=== PATIENT | female | born 1930 | race Caucasian/White ===

== ENCOUNTER → 2016-05-19 | Outpatient (CLI) | payer OTHER, MEDICARE ==
[~2016-05-19] MED LIST: ACET-1175 PO; ACET-1256 PO; ALBINS/ INH; ALBU0.08 INH; ALBU18002 INH; ALBU1AER9 INH; ASPEC81 PO; ASPI81TA21 PO; BISA10SU3 PR; CALC500C3 PEG; CALC500C3 PO; CARV12.52 PO; COEN1CAP10 PO; CPR500 PO; CRS20 PO; DEXT30TA7 PO; DIPH1TAB87 PO; DIPH50TA10 PO; EYE OPB; FEXO3TAB PO; FLUC200T4 PO; FURO-85 PO; GFNSR600 PO; GUAI100S16 PO; GUAI100S75 PO; HYDR2.5L TOP; LEVO150T9 PO; LOPE1TAB25 PO; LOSA50TA54 PO; LOSA50TA6 PO; LYR/50 PO; LYR50 PO; MOML PO; MONT1TAB3 PO; MULT-190 PO; NEOMOIN76 TOP; NITR0.4S UT; NTRGSL/4 UT; NYSP EXT; PANT40TA PO; POLY335019 PO; POLYSOL4 OP; POLYSOL4 OPB; POTA-74 PO; POTA10CA28 PO; POTA20TA16 PO; PRED10TA PO; PROAIR INJ; ROPI1TAB PO; ROSU40TA PO; SENN8.6T9 PO; SERT-234 PO; SODIENE PR; SPRIN/30 INH; SYMIN INH; SYMIN160 INH; TAFLUPROST OPB; TIOTCAP INH; TRAM-10 PO; TRAM-453 PO; TRAZ100T29 PO; ZIOPTAN 0.0015% OPB
--- NOTE | 2016-05-19 12:03 | DIAGNOSTIC IMAGING REPORT ---
CT SCAN OF THE CHEST WITHOUT IV CONTRAST CLINICAL HISTORY: Asthma. Chronic cough. COMPARISON STUDY: Chest CT dated 12/03/2015. TECHNIQUE: CT scan of the thorax was performed from the thoracic inlet to the upper abdomen. Images are reviewed in the axial, sagittal, and coronal planes. IV contrast was not administered for this examination as per the referring clinician. CT DOSE: 793.66 mGy.cm FINDINGS: Thyroid: Atrophic. Thoracic aorta: There is atherosclerotic calcification of the thoracic aorta, which is normal in caliber and demonstrates standard 3-vessel arch anatomy. Heart: A 2-lead cardiac pacemaker is present in the left chest wall. Leads terminate in the right atrial appendage and the right ventricle. The heart is enlarged and without pericardial effusion. The coronary arteries are densely calcified. The pulmonary trunk is normal in caliber. Lungs and pleural spaces: There are moderate emphysematous changes. No airspace consolidation or pleural effusion is identified. Linear atelectasis versus scarring is present at both lung bases, with additional foci of subpleural scarring seen in the right lower lobe. There are several foci of tree-in-bud nodularity identified in the right upper and right lower lobes, as well as in the left upper lobe. Trachea and central airways are clear. Mediastinum: There is no mediastinal lymphadenopathy. Barbara: Not well assessed without IV contrast. Axillae: There is no axillary lymphadenopathy. Upper abdomen: There is a small hiatal hernia. Cholecystectomy clips are noted. Scattered hepatic cysts measure up to 2.2 cm. There is glandular atrophy of the partially imaged pancreas. A calcified granuloma is noted in the right hepatic lobe. Scattered colonic diverticula are observed. Skeletal structures: The skeletal structures are osteopenic. Degenerative change and scoliosis are noted in the thoracic spine. Fusion hardware is partially imaged in the lumbar spine. Advanced arthritic change is present in the shoulders. No lytic or blastic bony lesions are seen. Soft tissues: A 10 mm sebaceous cyst is seen in the right lower back on image #[id number]. IMPRESSION: 1. Emphysema. 2. Cardiomegaly and cardiac pacemaker. There is no radiographic evidence of congestive failure. 3. There is no airspace consolidation or pleural effusion. Tree-in-bud airspace opacities seen on 12/03/2015 have resolved and were likely on an infectious/inflammatory basis. 4. Additional changes as above. Electronically signed by: Kalin Castillo M.D. 05/19/2016 12:01 PM Dictated Date/Time: 05/19/2016 11:56 AM
== END | disposition home or self-care (01) ==
LOC: C.CTS 11:18
PROVIDERS: ATTEND Internal Medicine Pulmonary Disease
DX: J45.909 Unspecified asthma, uncomplicated (principal); J43.9 Emphysema, unspecified; I51.7 Cardiomegaly; Z95.0 Presence of cardiac pacemaker

== ENCOUNTER → 2016-06-01 | Outpatient (CLI) | payer OTHER, MEDICARE ==
--- NOTE | 2016-06-02 12:32 | CODING QUERY NO DIAGNOSIS ---
TREATMENT RENDERED WITHOUT A DIAGNOSIS To promote full compliance with coding requirements relating to patient care, physician participation is requested in all cases of direct mail manager uncertainty. Please assist us with providing a diagnosis/symptom for the test(s) below: A diagnosis/symptom was not documented on your Order. A valid diagnosis/symptom is required to bill all insurances. Please remember that we are unable to code a diagnosis of rule out, probable, possible, questionable, or suspected. Tests that require a diagnosis: DOS: 06/01/16 * PRO BNP DIAGNOSIS: Provider Signature: Date: Thank you Samantha [facility] Information Management Once completed, please kindly fax back to [phone] For questions please call [phone]
== END | disposition home or self-care (01) ==
LOC: C.LABFOXDH 07:45
PROVIDERS: ATTEND Internal Medicine
DX: R06.02 Shortness of breath (principal)

== ENCOUNTER → 2016-06-05 | Outpatient (CLI) | payer OTHER, MEDICARE ==
[2016-06-05 10:18] LABS: BLOOD UREA NITROGEN 48 mg/dl (7-18); CALCIUM 8.3 mg/dl (8.5-10.1); CARBON DIOXIDE 31 mmol/L (21-32); CHLORIDE 108 mmol/L (98-107); GLUCOSE 118 mg/dl (70-99); POTASSIUM 3.8 mmol/L (3.5-5.1); SODIUM 146 mmol/L (136-145)
== END | disposition home or self-care (01) ==
LOC: C.LABFOXDH 09:45
PROVIDERS: ATTEND Internal Medicine
DX: I50.9 Heart failure, unspecified (principal)

== ENCOUNTER → 2016-06-08 | Outpatient (CLI) | payer OTHER, MEDICARE ==
[2016-06-08 08:55] LABS: BLOOD UREA NITROGEN 46 mg/dl (7-18); BUN/CREATININE RATIO 27.1 (10-20); CARBON DIOXIDE 32 mmol/L (21-32); CHLORIDE 105 mmol/L (98-107); GLUCOSE 94 mg/dl (70-99); POTASSIUM 3.9 mmol/L (3.5-5.1); SODIUM 145 mmol/L (136-145)
== END | disposition home or self-care (01) ==
LOC: C.LABFOXDH 08:23
PROVIDERS: ATTEND Internal Medicine
DX: N18.3 Chronic kidney disease, stage 3 (moderate) (principal)

== ENCOUNTER → 2016-07-11 | Outpatient (CLI) | payer OTHER, MEDICARE ==
--- NOTE | 2016-07-11 11:18 | DIAGNOSTIC IMAGING REPORT ---
TWO VIEW CHEST CLINICAL HISTORY: Dyspnea. FINDINGS: PA and lateral chest radiographs are compared to study dated 02/10/2016 and correlated with chest CT dated 05/19/2016. The PA view is significantly degraded by patient rotation. A 2-lead cardiac pacemaker is unchanged in position and partially obscures the left mid chest. The heart is enlarged and there is atherosclerotic calcification of the thoracic aorta. The pulmonary vasculature is noncongested. Emphysema and chronic interstitial thickening is similar to previous. There are small pleural effusions and bibasilar atelectasis. There is no airspace consolidation typical for pneumonia. No pneumothorax is seen. The skeletal structures are osteopenic. The bony thorax is grossly intact. Degenerative changes are noted in the shoulders. Fusion hardware is seen in the upper lumbar spine. IMPRESSION: 1. Cardiomegaly and cardiac pacemaker. There is no radiographic evidence of congestive failure. 2. Emphysema. 3. Trace pleural effusions and bibasilar atelectasis Electronically signed by: Kalin Castillo M.D. 07/11/2016 11:17 AM Dictated Date/Time: 07/11/2016 11:15 AM
== END | disposition home or self-care (01) ==
LOC: C.RADBBURG 11:03
PROVIDERS: ATTEND Physician Assistant
DX: R06.02 Shortness of breath (principal); I51.7 Cardiomegaly; Z95.0 Presence of cardiac pacemaker; J43.9 Emphysema, unspecified

== ENCOUNTER → 2016-07-28 | Day surgery (SDC) | payer OTHER, MEDICARE ==
[2016-07-26 07:42] VITALS: BMI 38.0
[~2016-07-28] VITALS: Ht 172.7 cm; Wt 115.0 kg
[~2016-07-28] MED LIST changes: -ACET-1256 PO; +ALBUT/IPRATROP 3MG/0.5MG NEB 3 ML VIAL INH ONE; -EYE OPB; -GFNSR600 PO; +LIDOCAINE HCL 2% 2 ML VIAL (20MG/ML) ONE; -NITR0.4S UT; +PROPOFOL IV EMULSION 10 MG/ML 20 ML VIAL IV ONE; -SYMIN INH; -TIOTCAP INH; -TRAM-453 PO; -ZIOPTAN 0.0015% OPB
[2016-07-28 11:05] VITALS: Ht 172.7 cm; Wt 115.0 kg
[2016-07-28 11:08] VITALS: PULSE 64; O2SAT 95
--- NOTE | 2016-07-28 11:18 | Endo History and Physical ---
History & Physical Date of Service: Jul 28, 2016. Chief Complaint: Dysphagia Referring Physician: Dr. Hi History of Present Illness 86 yo CF who presents for EGD secondary to dysphagia. Past Medical History Arthritis, Pacemaker, Asthma, Gastrointestinal Disorder, Glaucoma, Reflux, Hypertension, COPD, Thyroid Disease, Depression, [place] Past Surgical History Hx Cardiac Surgery: Yes (PACEMAKER INSERTION) Hx Internal Defibrillator: No Hx Pacemaker: Yes (MEDTRONIC) Hx Abdominal Surgery: Yes (CHOLECYSTECTOMY) Hx Post-Op Nausea and Vomiting: No Hx Cancer Surgery: No Hx Thoracic Surgery: Yes (LUMBAR DECOMPRESSION FUSION, D/F REVISION) Hx Orthopedic: Yes (RT/LEFT TKA, RT/LEFT NELL, RT SHOULDER ARTHROSPLASTY) Hx Urinary Tract Surgery: No Family History Colon CA Social History Smoking Status: Never Smoker Hx Substance Use: No Hx Alcohol Use: No Allergies Coded Allergies: Morphine (Verified Adverse Reaction, Intermediate, SEVERE GI, 07/28/16) Current Medications Reported Home Medications Medications Dose Route/Sig Max Daily Dose Days Date Category Dose Instructions Tums (Calcium Carbonate) 500 Mg Chew 1 Tab PO Q4H PRN 07/26/16 Reported Trazodone (Trazodone HCl) 100 Mg Tab 100 Mg PO HS 07/26/16 Reported Ultram (Tramadol HCl) 50 Mg Tab 25 Mg PO Q8H PRN 07/26/16 Reported Systane (Polyethylene Glycol-Propylene) 1 Florence Florence 1 Drops OP BID 07/26/16 Reported Symbicort 160/4.5 Inhaler (Budesonide/Formoterol Fumarate) Aero 2 Puffs INH BID 07/26/16 Reported Spiriva Handihaler (Tiotropium [place]) 30 Puff/540 Mcg Aerp 1 Cap INH DAILY 07/26/16 Reported Guaifenesin 100 Mg/5 Ml Syp 10 Ml PO Q6H PRN 07/26/16 Reported Requip (Ropinirole HCl) 1 Mg Tab 1 Mg PO HS 07/26/16 Reported Diphenhydramine Hcl (Diphenhydramine Hcl (Sleep)) 50 Mg Tab 0.5 Tab PO HS PRN 30 07/26/16 Reported Ocuvite Preservision (Multivitamins/Minerals) 1 Tab Tab 2 Tab PO BID 07/26/16 Reported Miralax (Polyethylene Glycol 3350) 1 Pow Pow 17 Gm PO DAILY PRN 07/26/16 Reported Protonix (Pantoprazole Sodium) 40 Mg Tab 40 Mg PO QAM 07/26/16 Reported Bio-Statin (Nystatin) 56.7 Gm Powd 1 Dose EXT DIRECTED PRN 07/26/16 Reported Nitrostat (Nitroglycerin) 0.4 Mg Tab 0.4 Mg UT PRN 07/26/16 Reported Mucinex Dm (Dextromethorphan-Guaifenesin) 1 Tab Tab 1 Tab PO Q12 PRN 14 07/26/16 Reported Milk Of Magnesia (Magnesium Hydroxide) 30 Ml Susp 30 Ml PO Q2D PRN 07/26/16 Reported Lyrica (Pregabalin) 50 Mg Cap 50 Mg PO BID 07/26/16 Reported Loperamide Hcl 2 Mg Tab 1 Tab PO DIRECTED PRN 07/26/16 Reported Fleet Enema (Sodium Phosphate/Biphosphate) Catherine 1 Ea [place] DAILY PRN 07/26/16 Reported Dulcolax (Bisacodyl) 10 Mg Sup 1 Supp NC DAILY PRN 07/26/16 Reported Singulair (Montelukast Sodium) 10 Mg Tab 10 Mg PO DAILY 02/10/16 Reported Cozaar (Losartan Potassium) 50 Mg Tab 50 Mg PO DAILY 02/10/16 Reported Proventil 0.083% 2.5MG/3ML (Albuterol Sulfate) Nebu 2.5 Mg INH Q4 PRN 04/01/15 Reported Proair Hfa (Albuterol) Aers 2 Puffs INH QID PRN 04/01/15 Reported Co Q10 (Coenzyme Q10 (Ubidecarenone)) 200 Mg Cap 200 Mg PO QAM 04/01/15 Reported Micro-K Ext Rel (Potassium Chloride) 10 Meq Capcr 10 Meq PO QAM 04/01/15 Reported Levothyroxine Sodium 150 Mcg Tab 1 Tab PO QAM 90 04/01/15 Reported Zoloft (Sertraline HCl) 100 Mg Tab 2 Tabs PO HS 04/01/15 Reported Tylenol (Acetaminophen) 325 Mg Tab 650 Mg PO Q4 PRN 10/22/13 Reported MAX APAP = 3GM/24HRS Senexon (Sennosides) 8.6 Mg Tab 1 Tab PO BID 10/22/13 Reported Coreg (Carvedilol) 12.5 Mg Tab 12.5 Mg PO BID 1/10/14 Reported Crestor * (Rosuvastatin Calcium) 40 Mg Tab 40 Mg PO HS 12/26/10 Reported Ecotrin Or Generic * (Aspirin) 81 Mg Ectab 81 Mg PO QAM 08/03/08 Reported Vital Signs Weight (Kilograms): 115.00 Height (Feet): 5 Height (Inches): 8 Date Time Temp Pulse Resp B/P (MAP) Pulse Ox O2 Delivery O2 Flow Rate FiO2 07/28/16 11:06 36.5 84 20 172/85 (114) 90 Room Air Physical Exam General Appearance: WD/WN, no apparent distress Respiratory/Chest: Auscultation: breath sounds normal Cardiovascular: Heart Auscultation: RRR Abdomen: Bowel Sounds: normal Inspection & Palpation: soft, non-distended, no tenderness, guarding & rebound Assessment and Plan Assessment: 86 yo CF who presents for EGD secondary to dysphagia. Plan: Proceed with EGD.
--- NOTE | 2016-07-28 12:19 | GI REPORT ---
Procedure Date: 07/28/2016 11:54 AM Procedure: Upper GI endoscopy Indications: Dysphagia Medicines: Monitored Anesthesia Care Complications: No immediate complications. Estimated Blood Loss: Estimated blood loss: none. Procedure: Pre-Anesthesia Assessment: - Prior to the procedure, a History and Physical was performed, and patient medications and allergies were reviewed. The patient's tolerance of previous anesthesia was also reviewed. The risks and benefits of the procedure and the sedation options and risks were discussed with the patient. All questions were answered, and informed consent was obtained. Prior Anticoagulants: The patient has taken aspirin, last dose was day of procedure. ASA Grade Assessment: III - A patient with severe systemic disease. After reviewing the risks and benefits, the patient was deemed in satisfactory condition to undergo the procedure. After obtaining informed consent, the endoscope was passed under direct vision. Throughout the procedure, the patient's blood pressure, pulse, and oxygen saturations were monitored continuously. The scope was introduced through the mouth, and advanced to the second part of duodenum. The upper GI endoscopy was accomplished without difficulty. The patient tolerated the procedure well. Findings: Multiple 2 mm plaques were found in the upper third of the esophagus. Cells for cytology were obtained by brushing. Localized mild inflammation characterized by erosions was found in the gastric antrum. Biopsies were taken with a cold forceps for histology. The examined duodenum was normal. Impression: - Multiple plaques in the upper third of the esophagus. Cells for cytology obtained. - Gastritis. Biopsied. - Normal examined duodenum. Recommendation: - Resume previous diet. - Continue present medications. - Await pathology results. - Return to primary care physician as previously scheduled. Chicho Hutchinson, DO 07/28/2016 12:18:49 PM This report has been signed electronically. Note Initiated On: 07/28/2016 11:54 AM I attest to the content of the Intraoperative Record and orders documented therein, exceptions below
--- NOTE | 2016-07-28 12:21 | Discharge Instructions ---
Endoscopy Patient Instructions Date / Procedure(s) Performed Jul 28, 2016. EGD Allergy Information Coded Allergies: Morphine (Verified Adverse Reaction, Intermediate, SEVERE GI, 07/28/16) Discharge Date / Findings Jul 28, 2016. Possible Deja esophagitis s/p brushings Gastritis s/p biopsies Medication Instructions Stopped Medication(s): nothing taken OK to resume all medications today as prescribed Medications Dose Route/Sig Max Daily Dose Days Date Category Dose Instructions Tums (Calcium Carbonate) 500 Mg Chew 1 Tab PO Q4H PRN 07/26/16 Reported Trazodone (Trazodone HCl) 100 Mg Tab 100 Mg PO HS 07/26/16 Reported Ultram (Tramadol HCl) 50 Mg Tab 25 Mg PO Q8H PRN 07/26/16 Reported Systane (Polyethylene Glycol-Propylene) 1 Florence [place] 1 Drops OP BID 07/26/16 Reported Symbicort 160/4.5 Inhaler (Budesonide/Formoterol Fumarate) Aero 2 Puffs INH BID 07/26/16 Reported Spiriva Handihaler (Tiotropium [place]) 30 Puff/540 Mcg Aerp 1 Cap INH DAILY 07/26/16 Reported Guaifenesin 100 Mg/5 Ml Syp 10 Ml PO Q6H PRN 07/26/16 Reported Requip (Ropinirole HCl) 1 Mg Tab 1 Mg PO HS 07/26/16 Reported Diphenhydramine Hcl (Diphenhydramine Hcl (Sleep)) 50 Mg Tab 0.5 Tab PO HS PRN 30 07/26/16 Reported Ocuvite Preservision (Multivitamins/Minerals) 1 Tab Tab 2 Tab PO BID 07/26/16 Reported Miralax (Polyethylene Glycol 3350) 1 Pow Pow 17 Gm PO DAILY PRN 07/26/16 Reported Protonix (Pantoprazole Sodium) 40 Mg Tab 40 Mg PO QAM 07/26/16 Reported Bio-Statin (Nystatin) 56.7 Gm Powd 1 Dose EXT DIRECTED PRN 07/26/16 Reported Nitrostat (Nitroglycerin) 0.4 Mg Tab 0.4 Mg UT PRN 07/26/16 Reported Mucinex Dm (Dextromethorphan-Guaifenesin) 1 Tab Tab 1 Tab PO Q12 PRN 14 07/26/16 Reported Milk Of Magnesia (Magnesium Hydroxide) 30 Ml Susp 30 Ml PO Q2D PRN 07/26/16 Reported Lyrica (Pregabalin) 50 Mg Cap 50 Mg PO BID 07/26/16 Reported Loperamide Hcl 2 Mg Tab 1 Tab PO DIRECTED PRN 07/26/16 Reported Fleet Enema (Sodium Phosphate/Biphosphate) Catherine 1 Ea [place] DAILY PRN 07/26/16 Reported Dulcolax (Bisacodyl) 10 Mg Sup 1 Supp [place] DAILY PRN 07/26/16 Reported Singulair (Montelukast Sodium) 10 Mg Tab 10 Mg PO DAILY 02/10/16 Reported Cozaar (Losartan Potassium) 50 Mg Tab 50 Mg PO DAILY 02/10/16 Reported Proventil 0.083% 2.5MG/3ML (Albuterol Sulfate) Nebu 2.5 Mg INH Q4 PRN 04/01/15 Reported Proair Hfa (Albuterol) Aers 2 Puffs INH QID PRN 04/01/15 Reported Co Q10 (Coenzyme Q10 (Ubidecarenone)) 200 Mg Cap 200 Mg PO QAM 04/01/15 Reported Micro-K Ext Rel (Potassium Chloride) 10 Meq Capcr 10 Meq PO QAM 04/01/15 Reported Levothyroxine Sodium 150 Mcg Tab 1 Tab PO QAM 90 04/01/15 Reported Zoloft (Sertraline HCl) 100 Mg Tab 2 Tabs PO HS 04/01/15 Reported Tylenol (Acetaminophen) 325 Mg Tab 650 Mg PO Q4 PRN 10/22/13 Reported MAX APAP = 3GM/24HRS Senexon (Sennosides) 8.6 Mg Tab 1 Tab PO BID 10/22/13 Reported Coreg (Carvedilol) 12.5 Mg Tab 12.5 Mg PO BID 02/28/13 Reported Crestor * (Rosuvastatin Calcium) 40 Mg Tab 40 Mg PO HS 12/26/10 Reported Ecotrin Or Generic * (Aspirin) 81 Mg Ectab 81 Mg PO QAM 08/03/08 Reported Provider Instructions Activity Restrictions - No exercising or heavy lifting for 24 hours. - Do not drink alcohol the day of the procedure. - Do not drive a car or operate machinery until the day after the procedure. - Do not make any important decisions or sign important papers in 24 hours after the procedure. Following Day: - Return to full activity which may include returning to work/school. Diet Start your diet with liquids and light foods (jello, soup, juice, toast). Then eat your usual diet if not nauseated. Treatment For Common After Affects For mild abdominal pain, bloating, or excessive gas: - Rest - Eat lightly - Lie on right side Follow-Up Information Follow-up with Dr. Hi as scheduled Anesthesia Information What You Should Know You have had a procedure that required some medicine to reduce anxiety and discomfort. This treatment is called moderate sedation. After receiving the treatment, you may be sleepy, but you will be able to breathe on your own. The effects of the treatment may last for several hours. Follow these instructions along with Activity/Diet recommendations noted above: * Do NOT do anything where dizziness or clumsiness would be dangerous. * Rest quietly at home today, then you can be up and about tomorrow. * Have a responsible person stay with you the rest of today. * You may have had an I.V. today. If so, you may take the dressing off later today. Recommendations Call your doctor if: * Trouble breathing * Continuous vomiting for more than 24 hours * Temperature above 101 degrees * Severe abdominal pain or bloating * Pain not relieved by pain medicine ordered * There is increased drainage or redness from any incision * A large amount of rectal bleeding greater than 2-3 tablespoons. (If you had a polyp/s removed or have hemorrhoids, a small amount of blood - from the rectum is to be expected.) * You have any unanswered questions or concerns. IN THE EVENT OF A SERIOUS EMERGENCY, GO TO THE NEAREST EMERGENCY ROOM Your discharge instructions were prepared by provider Chicho Hutchinson. Patient Instructions Signature Page Christina Hoy Patient (or Guardian) Signature/Date: I have read and understand the instructions given to me by my caregivers. Caregiver/RN/Doctor Signature/Date: The above-named patient and/or guardian has received patient instructions on this date. + Original Patient Signature Page (only) stays with chart. Please make copy for patient.
[2016-07-28 12:45] VITALS: BP 146/65; PULSE 62; O2SAT 92
--- NOTE | 2016-07-28 13:35 | Anesthesiology Progress Note ---
Anesthesia Post Op Note Date & Time Jul 28, 2016 at 13:35 Vital Signs Pain Intensity: 0 Vital Signs Past 12 Hours Date Time Temp Pulse Resp B/P (MAP) Pulse Ox O2 Delivery O2 Flow Rate FiO2 07/28/16 12:45 62 20 146/65 (92) 92 Room Air 07/28/16 12:35 62 20 105/76 (86) 93 Room Air 07/28/16 12:19 75 20 140/80 (100) 95 Room Air 07/28/16 11:08 64 16 95 Room Air 07/28/16 11:06 36.5 84 20 172/85 (114) 90 Room Air Notes Mental Status: alert / awake / arousable, participated in evaluation Pt Amnestic to Procedure: Yes Nausea / Vomiting: adequately controlled Pain: adequately controlled Airway Patency, RR, SpO2: stable & adequate BP & HR: stable & adequate Hydration State: stable & adequate Anesthetic Complications: no major complications apparent
== END | disposition home or self-care (01) ==
LOC: C.GI 10:44
PROVIDERS: ATTEND Internal Medicine
DX: R13.10 Dysphagia, unspecified (principal); J45.909 Unspecified asthma, uncomplicated; K29.50 Unspecified chronic gastritis without bleeding; K21.9 Gastro-esophageal reflux disease without esophagitis; F32.9 Major depressive disorder, single episode, unspecified; Z80.0 Family history of malignant neoplasm of digestive organs; Z95.0 Presence of cardiac pacemaker

== ENCOUNTER 2016-08-18 15:21 | Inpatient (IN) | payer OTHER, MEDICARE ==
[~2016-08-18] VITALS: Ht 172.7 cm; Wt 111.4 kg
[~2016-08-18 15:21] MED LIST changes: -ALBINS/ INH; -ALBU18002 INH; -ALBUT/IPRATROP 3MG/0.5MG NEB 3 ML VIAL INH ONE; -ASPI81TA21 PO; -CALC500C3 PEG; -CPR500 PO; -DIPH1TAB87 PO; -FEXO3TAB PO; -FLUC200T4 PO; -FURO-85 PO; -GUAI100S75 PO; -HYDR2.5L TOP; -LIDOCAINE HCL 2% 2 ML VIAL (20MG/ML) ONE; -LOSA50TA54 PO; -LYR/50 PO; -NEOMOIN76 TOP; -POLYSOL4 OPB; -POTA-74 PO; -POTA20TA16 PO; -PRED10TA PO; -PROAIR INJ; -PROPOFOL IV EMULSION 10 MG/ML 20 ML VIAL IV ONE; -ROSU40TA PO; -TAFLUPROST OPB
[2016-08-18] MEDS ORDERED: ALBUTEROL 0.083% NEBU SOLN 3 ML VIAL INH STA (15:32)
--- NOTE | 2016-08-18 15:52 | DIAGNOSTIC IMAGING REPORT ---
CHEST ONE VIEW PORTABLE CLINICAL HISTORY: Respiratory distress. Dyspnea. COMPARISON STUDY: Chest CT May 19, 2016 and chest radiograph July 11, 2016. FINDINGS: A dual lead left subclavian pacemaker is in place. Cardiomediastinal silhouette is stable. There is emphysema. No pneumothorax or pleural effusion is present. Mild bibasilar opacities are unchanged. IMPRESSION: No acute cardiopulmonary findings. No change in appearance of the chest. Electronically signed by: Nicolás Miller M.D. 08/18/2016 3:50 PM Dictated Date/Time: 08/18/2016 3:48 PM
[2016-08-18 15:56] LABS: BASO % 0.3 %; BASO ABS # 0.04 K/uL (0-0.2); COMPLETE YES; EOS % 1.2 %; HEMATOCRIT 39.8 % (37-47); IG% 0.3 %; LYMPH % 11.6 %; LYMPH ABS # 1.78 K/uL (1.2-3.4); MEAN CELL VOLUME 95.7 fL (80-100); MEAN CORPUSCULAR HEMOGLOBIN 29.1 pg (25-34); MEAN CORPUSCULAR HGB CONC 30.4 g/dl (32-36); MEAN PLATELET VOLUME 10.1 fL (7.4-10.4); MONO % 7.3 %; NEUT % 79.3 %; PLATELET COUNT 247 K/uL (130-400); RED BLOOD COUNT 4.16 M/uL (4.2-5.4); WHITE BLOOD COUNT 15.41 K/uL (4.8-10.8)
[2016-08-18 15:58] LABS: VEN BLD GAS O2 SATURATION 62.4 %; VEN BLOOD GAS BASE EXCESS 2.8 mmol/L
[2016-08-18] MEDS ORDERED: PIPERACILLIN/TAZOBACTAM 4.5 GM/100ML D5W IV STA (16:02)
[2016-08-18 16:05] LABS: PROTHROMBIN TIME (PATIENT) 10.5 SECONDS (9.0-12.0)
[2016-08-18 16:13] LABS: ALT/SGPT 18 U/L (12-78); AST/SGOT 17 U/L (15-37); BLOOD UREA NITROGEN 27 mg/dl (7-18); BUN/CREATININE RATIO 16.1 (10-20); CALCIUM 8.7 mg/dl (8.5-10.1); CARBON DIOXIDE 27 mmol/L (21-32); CHLORIDE 109 mmol/L (98-107); GLUCOSE 102 mg/dl (70-99); POTASSIUM 4.4 mmol/L (3.5-5.1); SODIUM 143 mmol/L (136-145)
[2016-08-18 16:17] LABS: ALB/GLOB RATIO 0.9 (0.9-2); ALKALINE PHOSPHATASE 111 U/L (45-117)
[2016-08-18] MEDS ORDERED: POLYSOL4 OPB (16:32)
[2016-08-18] MEDS ORDERED: MOML PO (16:32)
[2016-08-18] MEDS ORDERED: LYR/50 PO (16:32)
[2016-08-18] MEDS ORDERED: FURO-85 PO (16:32)
[2016-08-18] MEDS ORDERED: HYDR2.5L TOP (16:32)
[2016-08-18] MEDS ORDERED: CALC500C3 PEG (16:32)
[2016-08-18] MEDS ORDERED: SYMIN160 INH (16:32)
[2016-08-18] MEDS ORDERED: GUAI100S75 PO (16:32)
[2016-08-18] MEDS ORDERED: FLUC200T4 PO (16:32)
[2016-08-18] MEDS ORDERED: ALBU18002 INH (16:32)
[2016-08-18] MEDS ORDERED: PROAIR INJ (16:32)
[2016-08-18] MEDS ORDERED: DIPH1TAB PO (16:32)
[2016-08-18] MEDS ORDERED: ASPI81TA21 PO (16:32)
[2016-08-18] MEDS ORDERED: TAFLUPROST OPB (16:32)
[2016-08-18] MEDS ORDERED: POTA20TA16 PO (16:32)
[2016-08-18] MEDS ORDERED: ALBINS/ INH (16:32)
[2016-08-18] MEDS ORDERED: LOSA50TA54 PO (16:32)
[2016-08-18] MEDS ORDERED: NEOMOIN76 TOP (16:32)
[2016-08-18] MEDS ORDERED: ROSU40TA PO (16:32)
[2016-08-18] MEDS ORDERED: FEXO3TAB PO (16:32)
[2016-08-18] MEDS ORDERED: POTA-74 PO (16:36)
[2016-08-18] MEDS ORDERED: LEVAQUIN 500MG / 100ML D5W IV ONE (16:45)
--- NOTE | 2016-08-18 16:45 | DIAGNOSTIC IMAGING REPORT ---
RIGHT KNEE 3 VIEWS CLINICAL HISTORY: Fall. Right knee pain. FINDINGS: AP, crosstable lateral, and sunrise views of the right knee are obtained. Correlation is made with radiographs of the right femur dated 10/22/2013. The skeletal structures are osteopenic. No fracture is seen. A right knee arthroplasty is in near anatomic alignment. There has been undersurface remodeling of the patella. No periprosthetic lucency is seen. A joint effusion is noted. Soft tissue swelling is present around the knee. There is atherosclerotic calcification of the popliteal artery. IMPRESSION: 1. Soft tissue swelling and joint effusion. No fracture is seen. 2. A right knee arthroplasty is in near-anatomic alignment. Electronically signed by: Kalin Castillo M.D. 08/18/2016 4:44 PM Dictated Date/Time: 08/18/2016 4:42 PM
[2016-08-18 16:47] LABS: URINE APPEARANCE CLEAR (CLEAR); URINE BILIRUBIN NEG (NEG); URINE COLOR YELLOW; URINE EPITHELIAL CELL AUTO 20-30 /lpf (0-5); URINE NITRITE POS (NEG); UROBILINOGEN NEG (NEG)
[2016-08-18 16:49] LABS: MANUAL MICROSCOPIC REQUIRED? NO; REVIEW REQ? NO
[2016-08-18] MEDS ORDERED: POLYETHYLENE GLYCOL 8.5 GM PO PRN (18:00)
[2016-08-18] MEDS ORDERED: MAGNESIUM HYDROXIDE SUSP 30 ML UDC PO PRN ×2 (18:00→18:15)
[2016-08-18] MEDS ORDERED: BISACODYL 10 MG SUPP PR PRN (18:00)
[2016-08-18] MEDS ORDERED: CALCIUM CARBONATE 500 MG CHEWABLE PO PRN (18:00)
[2016-08-18] MEDS ORDERED: NITROGLYCERIN 0.4 MG SL PER TAB CHARGE UT SCH (18:00)
[2016-08-18] MEDS ORDERED: ACETAMINOPHEN 325 MG TAB PO PRN ×2 (18:00→18:15)
[2016-08-18] MEDS ORDERED: TRAMADOL HCL 50 MG TAB PO PRN (18:00)
[2016-08-18] MEDS ORDERED: ALBUTEROL 0.083% NEBU SOLN 3 ML VIAL INH PRN (18:00)
[2016-08-18] MEDS ORDERED: ONDANSETRON INJ 2 MG/ML 2 ML VIAL IV PRN (18:15)
[2016-08-18] MEDS ORDERED: ALBUT/IPRATROP 3MG/0.5MG NEB 3 ML VIAL INH PRN (18:15)
[2016-08-18] MEDS ORDERED: POLYETHYLENE (MIRALAX) 17 GM PACK PO PRN (18:15)
[2016-08-18] MEDS ORDERED: ALUMINUM/MAGNESIUM/SIMETH (MAALOX MAX) 30 ML UDC PO PRN (18:15)
--- NOTE | 2016-08-18 18:34 | History and Physical ---
History & Physical Date & Time of Service: Aug 18, 2016 at 18:23 Chief Complaint: Sob/Fall, Rt Knee Pain Primary Care Physician: Evangelista Ulloa History of Present Illness Source: patient, family This patient presents with increasing shortness of breath, one day prior to admission she aspirated one of her many oral medications. She states this caused coughing fit and she eventually produced the capsule, later that evening she coughed up a gelatinous orange material. She had a waxing and waning night as far shortness of breath coughing and sleep, she presented to the ER where she is found to be hypoxic on room air, has a prolonged expiratory phase of breathing, wheezing, and generally ill feeling. Her hypoxia corrects easily with oxygen in the ER Recently she had a fall and sustained a contusion to her right knee this was x- rayed without fracture there is a intact joint replacement Recently she has also had increasing swelling and weeping of fluid from her bilateral lower legs, she typically does take Lasix and has been compliant, however there are now some open areas to her distal right leg that are erythematous and concerning for infection. Past Medical/Surgical History Medical Problems: (1) Asthma Status: Chronic (2) Benign hypertension Status: Chronic (3) Bronchitis Status: Resolved (4) Cardiac pacemaker procedure Status: Resolved (5) COPD (chronic obstructive pulmonary disease) Status: Chronic (6) Depression Status: Chronic (7) GERD (gastroesophageal reflux disease) Status: Chronic (8) Hyperlipemia Status: Chronic (9) Pacemaker Status: Chronic Surgical Problems: (1) H/O spinal fusion Status: Resolved (2) S/P hip replacement Status: Resolved (3) S/P knee replacement Status: Resolved Family History FHx: cancer FHx: hypertension FHx: kidney disease/stones Social History Smoking Status: Former Smoker Drug Use: none Marital Status: Housing status: assisted living Occupational Status: retired Immunizations History of Influenza Vaccine: Yes Influenza Vaccine Date: Nov 20, 2012 History of Tetanus Vaccine?: Yes Tetanus Immunization Date: Nov 25, 1992 History of Pneumococcal: Yes Pneumococcal Date: Mar 30, 2008 History of Hepatitis B Vaccine: Unknown Multi-Drug Resistant Organisms History of MDRO: No Allergies Coded Allergies: Morphine (Verified Adverse Reaction, Intermediate, SEVERE GI, 07/28/16) Home Medications Scheduled Aspirin Enteric Coated (Ecotrin Or Generic), 81 MG PO DAILY Budesonide/Formoterol Fumarate (Symbicort 160/4.5 Inhaler ), 2 PUFFS INH BID Carvedilol (Coreg), 12.5 MG PO BID Coenzyme Q10 (Ubidecarenone) (Co Q10), 200 MG PO QAM Fexofenadine HCl (Mucinex Allergy), 1 TAB PO BID Fluconazole (Diflucan), 200 MG PO QPM Furosemide (Lasix), 20 MG PO QAM Hydrocortisone (Topical) (Hydrocortisone), 1 APPLN TOP BID Levothyroxine Sodium (Levothyroxine Sodium), 1 TAB PO QAM Losartan Potassium (Cozaar), 50 MG PO DAILY Magnesium Hydroxide (Milk Of Magnesia), 30 ML PO PRN UD Montelukast Sodium (Singulair), 10 MG PO DAILY Nitroglycerin (Nitrostat), 0.4 MG UT PRN Ocuvite Preservision (Ocuvite Preservision), 1 TAB PO BID Pantoprazole (Protonix), 40 MG PO QAM Polyethylene Glycol-Propylene (Systane), 1 DROPS OPB BID Potassium Chloride (Potassium Chloride Er), 1 TAB PO DAILY Pregabalin (Lyrica), 50 MG PO BID Ropinirole (Requip), 1 MG PO HS Rosuvastatin Calcium (Crestor), 40 MG PO ON HOLD Sennosides ([place]), 1 TAB PO BID Sertraline (Zoloft), 2 TABS PO HS Tiotropium Peerless (Spiriva Handihaler), 1 CAP INH DAILY Trazodone Hcl (Trazodone), 100 MG PO HS [Tafluprost], 1 DROP OPB QPM Scheduled PRN Acetaminophen (Tylenol), 650 MG PO Q4 PRN for Pain or Fever Albuterol Sulf (Proventil 0.083% 2.5MG/3ML), 2.5 MG INH Q4 PRN for COUGH/WHEEZE Bisacodyl (Dulcolax), 1 SUPP [place] Q48HR PRN for Constipation Calcium Carbonate (Tums), 1 TAB PO Q4H PRN for Indigestion Diphenhydramine Hcl (Benadryl Allergy), 12.5 MG PO HS PRN for Sleep Guaifenesin (Siltussin Sa), 10 ML PO Q6 PRN for Cough Loperamide Hcl (Loperamide Hcl), 1 TAB PO DIRECTED PRN for Diarrhea Neomycin-Bacitracin Zn-Polymyx (Triple Antibiotic), 1 APPLN TOP DAILY PRN for APPLY TO RIGHT LEG Nystatin (Bio-Statin), 1 DOSE EXT DIRECTED PRN for PRN Polyethylene Glycol 3350 (Miralax), 8.5 GM PO DAILY PRN for Constipation Sodium Phosphate/Biphosphate (Fleet Enema), 1 EA [place] UD PRN for Constipation Tramadol (Ultram), 25 MG PO Q8H PRN for Pain [Proair], 2 PUFF INJ Q6 PRN for SOB/Wheezing Review of Systems ROS: well nourished well developed No double vision blurry vision Some problems with speech or swallowing, due to dry mouth and recent thrush No palpitations, chest pain or pressure Wheezing and nonproductive cough dyspnea at rest No abdominal pain nausea vomiting diarrhea changes in appetite or weight No burning urine urine frequency or changes in color Right knee focal joint pain and muscle pain Worsening skin rashes lower extremity bilateral right greater than left No unusual bruising or bleeding No focused back pain or numbness or loss of strength No changes in memory or confusion Physical Exam Vital Signs Date Time Temp Pulse Resp B/P (MAP) Pulse Ox O2 Delivery O2 Flow Rate FiO2 08/18/16 17:57 66 22 157/90 92 Nasal Cannula 3.0 08/18/16 16:37 73 16 143/70 92 Nasal Cannula 3.0 08/18/16 15:38 37.8 80 22 127/75 87 Room Air 08/18/16 15:38 92 Nasal Cannula 2.0 08/18/16 15:38 92 Nasal Cannula 2.0 08/18/16 15:38 87 Room Air 08/18/16 15:34 81 General Appearance: + moderate distress, + obese Head: normocephalic, atraumatic Eyes: PERRL, EOMI ENT: hearing grossly normal, pharynx normal (I do not see any thrush currently) Neck: supple, no JVD, trachea midline Respiratory/Chest: + decreased breath sounds, + accessory muscle use, + wheezing Cardiovascular: regular rate, rhythm, + systolic murmur Abdomen/GI: normal bowel sounds, non tender, soft Back: no CVA tenderness, no muscle spasm Extremities/Musculoskelatal: + pedal edema, + swelling, + pertinent finding ( changes of chronic venous stasis) Neurologic/Psych: alert, oriented x 3 Skin: + rash, + pertinent finding (open areas to right leg approximately 2 cm lateral distal right) Diagnostics Laboratory Results Results Past 24 Hours Test 08/18/16 15:45 08/18/16 15:53 08/18/16 16:20 Range/Units White Blood Count 15.41 4.8-10.8 K/uL Red Blood Count 4.16 4.2-5.4 M/uL Hemoglobin 12.1 12.0-16.0 g/dL Hematocrit 39.8 37-47 % Mean Corpuscular Volume 95.7 80-100 fL Mean Corpuscular Hemoglobin 29.1 25-34 pg Mean Corpuscular Hemoglobin Concent 30.4 32-36 g/dl Platelet Count 247 130-400 K/uL Mean Platelet Volume 10.1 7.4-10.4 fL Neutrophils (%) (Auto) 79.3 % Lymphocytes (%) (Auto) 11.6 % Monocytes (%) (Auto) 7.3 % Eosinophils (%) (Auto) 1.2 % Basophils (%) (Auto) 0.3 % Neutrophils # (Auto) 12.25 1.4-6.5 K/uL Lymphocytes # (Auto) 1.78 1.2-3.4 K/uL Monocytes # (Auto) 1.12 0.11-0.59 K/uL Eosinophils # (Auto) 0.18 0-0.5 K/uL Basophils # (Auto) 0.04 0-0.2 K/uL RDW Standard Deviation 56.7 36.4-46.3 fL RDW Coefficient of Variation 16.3 11.5-14.5 % Immature Granulocyte % (Auto) 0.3 % Immature Granulocyte # (Auto) 0.04 0.00-0.02 K/uL Prothrombin Time 10.5 9.0-12.0 SECONDS Prothromb Time International Ratio 1.0 0.9-1.1 Activated Partial Thromboplast Time 26.1 21.0-31.0 SECONDS Partial Thromboplastin Ratio 1.0 Venous Blood pH 7.36 7.36-7.41 Venous Blood Partial Pressure CO2 53 38.0-50.0 mmHg Venous Blood Partial Pressure O2 31 mmHg Venous Blood HCO3 29 mmol/L Venous Blood Oxygen Saturation 62.4 % Venous Blood Base Excess 2.8 mmol/L Sodium Level 143 136-145 mmol/L Potassium Level 4.4 3.5-5.1 mmol/L Chloride Level 109 98-107 mmol/L Carbon Dioxide Level 27 21-32 mmol/L Anion Gap 7.0 3-11 mmol/L Blood Urea Nitrogen 27 7-18 mg/dl Creatinine 1.70 0.60-1.20 mg/dl Est Creatinine Clear Calc Drug Dose 29.9 ml/min Estimated GFR () 30.7 Estimated GFR (Non- 26.5 BUN/Creatinine Ratio 16.1 10-20 Random Glucose 102 70-99 mg/dl Calcium Level 8.7 8.5-10.1 mg/dl Total Bilirubin 0.3 0.2-1 mg/dl Aspartate Amino Transf (AST/SGOT) 17 15-37 U/L Alanine Aminotransferase (ALT/SGPT) 18 12-78 U/L Alkaline Phosphatase 111 45-117 U/L Troponin I < 0.015 0-0.045 ng/ml Pro-B-Type Natriuretic Peptide 1630 0-1800 pg/ml Total Protein 6.2 6.4-8.2 gm/dl Albumin 2.9 3.4-5.0 gm/dl Globulin 3.3 2.5-4.0 gm/dl Albumin/Globulin Ratio 0.9 0.9-2 Lactic Acid Level 1.5 0.4-2.0 mmol/L Urine Color YELLOW Urine Appearance CLEAR CLEAR Urine pH 5.0 4.5-7.5 Urine Specific [place] 1.020 1.000-1.030 Urine Protein NEG NEG Urine Glucose (UA) NEG NEG Urine Ketones NEG NEG Urine Occult Blood NEG NEG Urine Nitrite POS NEG Urine Bilirubin NEG NEG Urine Urobilinogen NEG NEG Urine Leukocyte Esterase SMALL NEG Urine WBC (Auto) 10-30 0-5 /hpf Urine RBC (Auto) 0-4 0-4 /hpf Urine Hyaline Casts (Auto) 1-5 0-5 /lpf Urine Epithelial Cells (Auto) 20-30 0-5 /lpf Urine Bacteria (Auto) 1+ NEG Microbiology Results 08/18/16 Blood Culture, Received Pending 08/18/16 Blood Culture, Received Pending other (no evidence of heart failure infiltrate or effusion) Impression Assessment and Plan 86-year-old female with acute hypoxic respiratory failure with a baseline history of chronic respiratory failure requiring nocturnal oxygen, likely exacerbated by aspiration of pill. Right lower extremity cellulitis on a background of chronic venous stasis For her COPD nebulized albuterol ipratropium and formoterol, intravenous steroids, supplemental oxygen. If she does not improve consideration for repeat x-ray or pulmonary consultation (Zosyn for cellulitis will also cover aspiration pneumonia) Lower extremity cellulitis, we will use Zosyn wound care consult Cor pulmonale and edema, we'll change her Lasix intravenous. Continue Coreg, Cozaar, last echo January/2016 showed preserved ejection fraction Clinically euthyroid continue Synthroid Dry mouth, continue Diflucan for thrush (holding Crestor) use Peridex DVT prevention is heparin Resuscitation Status FULL RESUSCITATION VTE Prophylaxis VTE Risk Assessment Done? Y/N: Yes Risk Level: Moderate Given or contraindicated: Unfractionated heparin SQ
[2016-08-18] MEDS ORDERED: PIPERACILL/TAZOBAC CONSULT ACTIVE PRN (19:45)
[2016-08-18 19:48] VITALS: PULSE 68; O2SAT 96
[2016-08-18 19:51] VITALS: BP 138/73; PULSE 73; TEMP 37.2; O2SAT 94; Ht 172.7 cm; Wt 111.4 kg
[2016-08-18] MEDS: ALBUT/IPRATROP 3MG/0.5MG NEB 3 ML VIAL INH SCH (19:53)
[2016-08-18] MEDS ORDERED: NYSTATIN POWDER 15GM BTL EXT PRN (20:00)
[2016-08-18] MEDS: FORMOTEROL FUMA NEBULIZER SOLN 20 MCG/2 ML VIAL INH SCH (20:10)
[2016-08-18] MEDS ORDERED: BUDESONIDE/FORMOTEROL FUMARATE 160/4.5 60 PUFFS/INHALER INH SCH (21:00)
[2016-08-18] MEDS: PREGABALIN 50 MG CAP PO SCH (21:12)
[2016-08-18] MEDS: METHYLPREDNISOLONE IV 40 MG in SYRINGE 0 ML IV SCH (21:13)
[2016-08-18] MEDS: FUROSEMIDE INJ 20 MG in SYRINGE 0 ML IV SCH (21:13)
[2016-08-18] MEDS: CARVEDILOL 12.5 MG TAB PO SCH (21:14)
[2016-08-18] MEDS: FEXOFENADINE HCL 180 MG TAB PO SCH (21:14)
[2016-08-18] MEDS: FLUCONAZOLE 100 MG TAB PO SCH (21:15)
[2016-08-18] MEDS: CEROVITE ADV FORMULA TAB PO SCH (21:15)
[2016-08-18] MEDS: MONTELUKAST SOD 10 MG TAB PO SCH (21:16)
[2016-08-18] MEDS: ROPINIROLE HCL 1 MG TAB PO SCH (21:23)
[2016-08-18] MEDS: TRAZODONE HCL 100 MG TAB PO SCH (21:24)
[2016-08-18] MEDS: SERTRALINE HCL 100 MG TAB PO SCH (21:24)
[2016-08-18] MEDS: SENNA 8.6 MG TAB PO SCH (21:25)
[2016-08-18] MEDS: HEPARIN SOD 5000 UNIT/0.5 ML CARP SQ SCH (21:26)
[2016-08-18] MEDS: PIPERACILL/TAZOBAC IV 4.5 GM in DEXTROSE 5% 100ML IV SCH (21:32)
[2016-08-18] MEDS: CHLORHEXIDINE GLUCONATE 0.12% 480 ML MT SCH (21:32)
[2016-08-18] MEDS ORDERED: PIPERACILL/TAZOBAC IV 3.375 GM in DEXTROSE 5% 100ML 100 ML IV SCH (22:00)
--- NOTE | 2016-08-18 23:08 | EMERGENCY ROOM VISIT NOTE ---
History Report prepared by Jennifer: Leonides Pierre Under the Supervision of: Dr. Gera Braga D.O. First contact with patient: 15:21 Stated Complaint: SOB/FALL, RT KNEE PAIN History of Present Illness The patient is an 86 year old female with a history of asthma and COPD who presents to the Emergency Room via EMS from [facility] with complaints of worsening shortness of breath that started yesterday. Per EMS, the patient has had worsening breathing problems, and was given a breathing treatment on the way in, and the patient reports a bit of relief. The patient was brought in for possible aspiration pneumonia. The patient states that she fell prior to arrival , as she was trying to sit on a chair but missed. She says that she fell on her right knee, and has resulting persistent right knee pain. The patient states that she did not hit her head. She notes that she has chronic shortness of breath, and wears oxygen only at night. However, her breathing got really bad yesterday, and she adds that she tried to swallow a pill yesterday, and coughed the pill back up through her mouth. The patient states that her shortness of breath is better than before the breathing treatment, but it is still worse than her baseline. She denies any nausea, vomiting, loss of consciousness, new cough, headaches, neck pain, chest pain, or back pain. The patient takes a baby aspirin daily. Source of History: patient, EMS Onset: Yesterday Position: other (global - shortness of breath) Timing: worsening Modifying Factors (Relieving): other (breathing treatment) Associated Symptoms: No LOC, No headache, No cough (new), No neck pain, No chest pain, No nausea, No vomiting, No back pain Note: Associated symptoms: Right knee pain after fall today. Review of Systems See HPI for pertinent positives & negatives. A total of 10 systems reviewed and were otherwise negative. Past Medical & Surgical Medical Problems: (1) Acute and chronic respiratory failure with hypoxia (2) Asthma (3) Benign hypertension (4) Bronchitis (5) Cardiac pacemaker procedure (6) COPD (chronic obstructive pulmonary disease) (7) Depression (8) GERD (gastroesophageal reflux disease) (9) Hyperlipemia (10) Pacemaker Surgical Problems: (1) H/O spinal fusion (2) S/P hip replacement (3) S/P knee replacement Family History FHx: cancer FHx: hypertension FHx: kidney disease/stones Social History Smoking Status: Never Smoker Alcohol Use: occasionally Drug Use: none Marital Status: Housing Status: assisted living Occupation Status: retired Current/Historical Medications Scheduled Aspirin Enteric Coated (Ecotrin Or Generic), 81 MG PO DAILY Budesonide/Formoterol Fumarate (Symbicort 160/4.5 Inhaler ), 2 PUFFS INH BID Carvedilol (Coreg), 12.5 MG PO BID Coenzyme Q10 (Ubidecarenone) (Co Q10), 200 MG PO QAM Fexofenadine HCl (Mucinex Allergy), 1 TAB PO BID Fluconazole (Diflucan), 200 MG PO QPM Furosemide (Lasix), 20 MG PO QAM Hydrocortisone (Topical) (Hydrocortisone), 1 APPLN TOP BID Levothyroxine Sodium (Levothyroxine Sodium), 1 TAB PO QAM Losartan Potassium (Cozaar), 50 MG PO DAILY Magnesium Hydroxide (Milk Of Magnesia), 30 ML PO PRN UD Montelukast Sodium (Singulair), 10 MG PO DAILY Nitroglycerin (Nitrostat), 0.4 MG UT PRN Ocuvite Preservision (Ocuvite Preservision), 1 TAB PO BID Pantoprazole (Protonix), 40 MG PO QAM Polyethylene Glycol-Propylene (Systane), 1 DROPS OPB BID Potassium Chloride (Potassium Chloride Er), 1 TAB PO DAILY Pregabalin (Lyrica), 50 MG PO BID Ropinirole (Requip), 1 MG PO HS Rosuvastatin Calcium (Crestor), 40 MG PO ON HOLD Sennosides ([place]), 1 TAB PO BID Sertraline (Zoloft), 2 TABS PO HS Tiotropium [place] (Spiriva Handihaler), 1 CAP INH DAILY Trazodone Hcl (Trazodone), 100 MG PO HS [Tafluprost], 1 DROP OPB QPM Scheduled PRN Acetaminophen (Tylenol), 650 MG PO Q4 PRN for Pain or Fever Albuterol Sulf (Proventil 0.083% 2.5MG/3ML), 2.5 MG INH Q4 PRN for COUGH/WHEEZE Bisacodyl (Dulcolax), 1 SUPP OH Q48HR PRN for Constipation Calcium Carbonate (Tums), 1 TAB PO Q4H PRN for Indigestion Diphenhydramine Hcl (Benadryl Allergy), 12.5 MG PO HS PRN for Sleep Guaifenesin (Siltussin Sa), 10 ML PO Q6 PRN for Cough Loperamide Hcl (Loperamide Hcl), 1 TAB PO DIRECTED PRN for Diarrhea Neomycin-Bacitracin Zn-Polymyx (Triple Antibiotic), 1 APPLN TOP DAILY PRN for APPLY TO RIGHT LEG Nystatin (Bio-Statin), 1 DOSE EXT DIRECTED PRN for PRN Polyethylene Glycol 3350 (Miralax), 8.5 GM PO DAILY PRN for Constipation Sodium Phosphate/Biphosphate (Fleet Enema), 1 EA OH UD PRN for Constipation Tramadol (Ultram), 25 MG PO Q8H PRN for Pain [Proair], 2 PUFF INJ Q6 PRN for SOB/Wheezing Allergies Coded Allergies: Morphine (Verified Adverse Reaction, Intermediate, SEVERE GI, 07/28/16) Physical Exam Vital Signs Date Time Temp Pulse Resp B/P (MAP) Pulse Ox O2 Delivery O2 Flow Rate FiO2 08/18/16 17:57 66 22 157/90 92 Nasal Cannula 3.0 08/18/16 16:37 73 16 143/70 92 Nasal Cannula 3.0 08/18/16 15:38 37.8 80 22 127/75 87 Room Air 08/18/16 15:38 92 Nasal Cannula 2.0 08/18/16 15:38 92 Nasal Cannula 2.0 08/18/16 15:38 87 Room Air 08/18/16 15:34 81 Physical Exam GENERAL: sitting up in bed, dyspneic on conversation, on nasal cannula EYE EXAM: normal conjunctiva, PERRL and EOM's grossly intact OROPHARYNX: no exudate, no erythema, lips, buccal mucosa, and tongue normal and mucous membranes are moist NECK: supple, no nuchal rigidity, no adenopathy, non-tender LUNGS: Diffuse wheezing bilaterally. HEART: no murmurs, S1 normal and S2 normal CHEST: Stable to compression anteriorly and posteriorly. ABDOMEN: abdomen soft, non-tender, normo-active bowel sounds, no masses, no rebound or guarding. BACK: Back is symmetrical on inspection and there is no deformity, no midline tenderness, no CVA tenderness. PELVIS: Stable to compression anteriorly and posteriorly. SKIN: no rashes and no bruising UPPER EXTREMITIES: Full active and passive range of motion without tenderness to palpation. LOWER EXTREMITIES: Full active and passive range of motion without tenderness to palpation, with exception of bruising over the right anterior patella. NEURO EXAM: Normal sensorium, cranial nerves II-XII grossly intact, normal speech, no gross weakness of arms, no gross weakness of legs. GCS of 15. Medical Decision & Procedures ER Provider Diagnostic Interpretation: X-ray results as stated below per my review and the radiologist's interpretation : CHEST ONE VIEW PORTABLE CLINICAL HISTORY: Respiratory distress. Dyspnea. COMPARISON STUDY: Chest CT May 19, 2016 and chest radiograph July 11, 2016. FINDINGS: A dual lead left subclavian pacemaker is in place. Cardiomediastinal silhouette is stable. There is emphysema. No pneumothorax or pleural effusion is present. Mild bibasilar opacities are unchanged. IMPRESSION: No acute cardiopulmonary findings. No change in appearance of the chest. Electronically signed by: Nicolás Miller M.D. 08/18/2016 3:50 PM Dictated Date/Time: 08/18/2016 3:48 PM RIGHT KNEE 3 VIEWS CLINICAL HISTORY: Fall. Right knee pain. FINDINGS: AP, crosstable lateral, and sunrise views of the right knee are obtained. Correlation is made with radiographs of the right femur dated 10/22/2013. The skeletal structures are osteopenic. No fracture is seen. A right knee arthroplasty is in near anatomic alignment. There has been undersurface remodeling of the patella. No periprosthetic lucency is seen. A joint effusion is noted. Soft tissue swelling is present around the knee. There is atherosclerotic calcification of the popliteal artery. IMPRESSION: 1. Soft tissue swelling and joint effusion. No fracture is seen. 2. A right knee arthroplasty is in near-anatomic alignment. Electronically signed by: Kalin Castillo M.D. 08/18/2016 4:44 PM Dictated Date/Time: 08/18/2016 4:42 PM Laboratory Results 08/18/16 15:45 Red Blood Count 4.16, Mean Corpuscular Volume 95.7, Mean Corpuscular Hemoglobin 29.1, Mean Corpuscular Hemoglobin Concent 30.4, Mean Platelet Volume 10.1, Neutrophils (%) (Auto) 79.3, Lymphocytes (%) (Auto) 11.6, Monocytes (%) (Auto) 7.3, Eosinophils (%) (Auto) 1.2, Basophils (%) (Auto) 0.3, Neutrophils # (Auto) 12.25, Lymphocytes # (Auto) 1.78, Monocytes # (Auto) 1.12, Eosinophils # (Auto) 0.18, Basophils # (Auto) 0.04 08/18/16 15:45 Test 08/18/16 15:45 08/18/16 15:53 08/18/16 16:20 White Blood Count 15.41 K/uL (4.8-10.8) Red Blood Count 4.16 M/uL (4.2-5.4) Hemoglobin 12.1 g/dL (12.0-16.0) Hematocrit 39.8 % (37-47) Mean Corpuscular Volume 95.7 fL (80-100) Mean Corpuscular Hemoglobin 29.1 pg (25-34) Mean Corpuscular Hemoglobin Concent 30.4 g/dl (32-36) Platelet Count 247 K/uL (130-400) Mean Platelet Volume 10.1 fL (7.4-10.4) Neutrophils (%) (Auto) 79.3 % Lymphocytes (%) (Auto) 11.6 % Monocytes (%) (Auto) 7.3 % Eosinophils (%) (Auto) 1.2 % Basophils (%) (Auto) 0.3 % Neutrophils # (Auto) 12.25 K/uL (1.4-6.5) Lymphocytes # (Auto) 1.78 K/uL (1.2-3.4) Monocytes # (Auto) 1.12 K/uL (0.11-0.59) Eosinophils # (Auto) 0.18 K/uL (0-0.5) Basophils # (Auto) 0.04 K/uL (0-0.2) RDW Standard Deviation 56.7 fL (36.4-46.3) RDW Coefficient of Variation 16.3 % (11.5-14.5) Immature Granulocyte % (Auto) 0.3 % Immature Granulocyte # (Auto) 0.04 K/uL (0.00-0.02) Prothrombin Time 10.5 SECONDS (9.0-12.0) Prothromb Time International Ratio 1.0 (0.9-1.1) Activated Partial Thromboplast Time 26.1 SECONDS (21.0-31.0) Partial Thromboplastin Ratio 1.0 Venous Blood pH 7.36 (7.36-7.41) Venous Blood Partial Pressure CO2 53 mmHg (38.0-50.0) Venous Blood Partial Pressure O2 31 mmHg Venous Blood HCO3 29 mmol/L Venous Blood Oxygen Saturation 62.4 % Venous Blood Base Excess 2.8 mmol/L Anion Gap 7.0 mmol/L (3-11) Est Creatinine Clear Calc Drug Dose 29.9 ml/min Estimated GFR () 30.7 Estimated GFR (Non- 26.5 BUN/Creatinine Ratio 16.1 (10-20) Calcium Level 8.7 mg/dl (8.5-10.1) Total Bilirubin 0.3 mg/dl (0.2-1) Aspartate Amino Transf (AST/SGOT) 17 U/L (15-37) Alanine Aminotransferase (ALT/SGPT) 18 U/L (12-78) Alkaline Phosphatase 111 U/L (45-117) Troponin I < 0.015 ng/ml (0-0.045) Pro-B-Type Natriuretic Peptide 1630 pg/ml (0-1800) Total Protein 6.2 gm/dl (6.4-8.2) Albumin 2.9 gm/dl (3.4-5.0) Globulin 3.3 gm/dl (2.5-4.0) Albumin/Globulin Ratio 0.9 (0.9-2) Lactic Acid Level 1.5 mmol/L (0.4-2.0) Urine Color YELLOW Urine Appearance CLEAR (CLEAR) Urine pH 5.0 (4.5-7.5) Urine Specific [place] 1.020 (1.000-1.030) Urine Protein NEG (NEG) Urine Glucose (UA) NEG (NEG) Urine Ketones NEG (NEG) Urine Occult Blood NEG (NEG) Urine Nitrite POS (NEG) Urine Bilirubin NEG (NEG) Urine Urobilinogen NEG (NEG) Urine Leukocyte Esterase SMALL (NEG) Urine WBC (Auto) 10-30 /hpf (0-5) Urine RBC (Auto) 0-4 /hpf (0-4) Urine Hyaline Casts (Auto) 1-5 /lpf (0-5) Urine Epithelial Cells (Auto) 20-30 /lpf (0-5) Urine Bacteria (Auto) 1+ (NEG) Laboratory results per my review. Medications Administered Medications (Trade) Dose Ordered Sig/Lucien Route Start Time Stop Time Status Last Admin Dose Admin Albuterol Sulfate (Ventolin 0.083% 2.5MG/3ML Neb) 2.5 mg NOW STAT INH 08/18/16 15:32 08/18/16 15:34 DC 08/18/16 16:01 2.5 MG Piperacillin Sod/ Tazobactam Sod (Zosyn Iv) 4.5 gm NOW STAT IV 08/18/16 16:02 08/18/16 16:03 DC 08/18/16 16:39 4.5 GM Levofloxacin (Levaquin / D5W) 500 mg NOW ONCE IV 08/18/16 16:45 08/18/16 16:46 DC 08/18/16 16:56 500 MG ECG Indication: SOB/dyspnea Rate (beats per minute): 77 Rhythm: sinus rhythm Findings: 1st degree AV block, left axis deviation ED Course ED COURSE: Vital signs were reviewed and showed hypoxic vitals. The patients medical record was reviewed The above diagnostic studies were performed and reviewed. ED treatments and interventions as stated above. 1522: The patient was evaluated in room A11B. A complete history and physical examination was performed. 1532: Ordered Ventolin 0.083% 2.5MG/3ML Neb 2.5 mg INH. 1602: Ordered Zosyn IV 4.5 gm IV. 1645: Ordered Levaquin / D5W 500 mg IV. 1730: Upon reevaluation, the patient is resting comfortably.I discussed my findings with the patient and she understands and agrees with the treatment plan. Based on the patients age, coexisting illnesses, exam and lab findings the decision to treat as an inpatient was made. The patient remained stable while under my care. The patient will be evaluated for further management. 1738: I discussed the patient with Dr. Presley - [facility] [place] - he will evaluate the patient for further treatment Medical Decision Differential diagnoses includes but is not limited to pneumonia, bronchitis, COPD/Asthma exacerbation, pneumothorax, pulmonary embolism, congestive heart failure, acute coronary syndrome Blood pressure screening: Patient was found to have normal blood pressure on screening and does not require follow-up. Medication Reconciliation: I attest that I have personally reviewed the patient' s current medication list. Patient is an 86-year-old female presents the ER for shortness breath which started following taking a pill last night and choking on it. Patient also fell today has knee pain. X-rays of her knee were negative. Upon presentation she is found to be hypoxic and was placed on 3-4 L. She does have a history of COPD. She had a low-grade fever. UA was contaminated and she does have a cellulitis in her right lower extremity. She is covered with broad-spectrum antibiotics and admitted to internal medicine for COPD exacerbation versus aspiration pneumonitis. Consults Time Called: 173 Consulting Physician: Dr. Fernandez Rayo [facility] [place] student dean Returned Call: [phone] (in person) I discussed the patient with Dr. Fernandez Rayo [facility] [place] - he will evaluate the patient for further treatment Impression Primary Impression: Hypoxia Additional Impressions: Fever Cellulitis Scribe Attestation The scribe's documentation has been prepared under my direction and personally reviewed by me in its entirety. I confirm that the note above accurately reflects all work, treatment, procedures, and medical decision making performed by me. Departure Information Dispostion Being Evaluated By Hospitalist Referrals Kennedi Torres PA-C (PCP) Problem Qualifiers Additional Impressions: Fever Fever type: unspecified Qualified Codes: R50.9 - Fever, unspecified Cellulitis Site of cellulitis: unspecified site Qualified Codes: L03.90 - Cellulitis, unspecified
[2016-08-18 23:39] VITALS: BP 119/51; PULSE 64; TEMP 36.7; O2SAT 93
[2016-08-18] MEDS: SYSTANE~ORDER AWAITING ACTION SCH (23:55)
[2016-08-19] MEDS: PIPERACILL/TAZOBAC IV 4.5 GM in DEXTROSE 5% 100ML IV SCH ×2 (06:05→13:30)
[2016-08-19] MEDS: LEVOTHYROXINE 150 MCG TAB PO SCH (06:06)
[2016-08-19] MEDS: SYSTANE~ORDER AWAITING ACTION SCH ×3 (07:18→23:21)
[2016-08-19 07:19] LABS: HEMATOCRIT 35.5 % (37-47); MEAN CELL VOLUME 94.7 fL (80-100); MEAN CORPUSCULAR HEMOGLOBIN 29.3 pg (25-34); MEAN PLATELET VOLUME 10.2 fL (7.4-10.4); PLATELET COUNT 246 K/uL (130-400); RED BLOOD COUNT 3.75 M/uL (4.2-5.4); WHITE BLOOD COUNT 8.78 K/uL (4.8-10.8)
[2016-08-19] MEDS: FORMOTEROL FUMA NEBULIZER SOLN 20 MCG/2 ML VIAL INH SCH ×2 (07:25→19:00)
[2016-08-19] MEDS: ALBUT/IPRATROP 3MG/0.5MG NEB 3 ML VIAL INH SCH ×4 (07:25→18:57)
[2016-08-19 07:26] VITALS: PULSE 67; O2SAT 94
[2016-08-19 07:32] VITALS: BP 125/64; PULSE 64; TEMP 36.7; O2SAT 93
[2016-08-19 07:46] LABS: ALT/SGPT 19 U/L (12-78); BLOOD UREA NITROGEN 32 mg/dl (7-18); BUN/CREATININE RATIO 16.6 (10-20); CALCIUM 8.8 mg/dl (8.5-10.1); CARBON DIOXIDE 29 mmol/L (21-32); CHLORIDE 109 mmol/L (98-107); GLUCOSE 161 mg/dl (70-99); POTASSIUM 4.6 mmol/L (3.5-5.1); SODIUM 144 mmol/L (136-145)
[2016-08-19 07:49] LABS: ALKALINE PHOSPHATASE 103 U/L (45-117); AST/SGOT 15 U/L (15-37)
[2016-08-19] MEDS: CHLORHEXIDINE GLUCONATE 0.12% 480 ML MT SCH ×3 (08:17→20:59)
[2016-08-19] MEDS: METHYLPREDNISOLONE IV 40 MG in SYRINGE 0 ML IV SCH ×2 (08:18→20:59)
[2016-08-19] MEDS: CEROVITE ADV FORMULA TAB PO SCH ×2 (08:19→21:00)
[2016-08-19] MEDS: CARVEDILOL 12.5 MG TAB PO SCH ×2 (08:19→21:06)
[2016-08-19] MEDS: PANTOprazole SOD 40 MG TAB PO SCH (08:19)
[2016-08-19] MEDS: FUROSEMIDE INJ 20 MG in SYRINGE 0 ML IV SCH (08:19)
[2016-08-19] MEDS: SENNA 8.6 MG TAB PO SCH ×2 (08:19→21:01)
[2016-08-19] MEDS: LOSARTAN POTASSIUM 50 MG TAB PO SCH (08:19)
[2016-08-19] MEDS: ASPIRIN 81 MG ECTAB PO SCH (08:20)
[2016-08-19] MEDS: FEXOFENADINE HCL 180 MG TAB PO SCH ×2 (08:20→20:59)
[2016-08-19] MEDS: HEPARIN SOD 5000 UNIT/0.5 ML CARP SQ SCH ×2 (08:27→21:04)
[2016-08-19] MEDS: PREGABALIN 50 MG CAP PO SCH ×2 (08:28→21:05)
[2016-08-19] MEDS ORDERED: TIOTROPIUM BROMIDE 5 PUFF/90 MCG INH INH SCH (09:00)
[2016-08-19 11:32] VITALS: PULSE 90; O2SAT 96
--- NOTE | 2016-08-19 15:12 | Progress Note ---
Subjective Date of Service: Aug 19, 2016. Subjective Pt evaluation today including: conversation w/ patient, physical exam, chart review, lab review, review of studies, review of inpatient medication list Reports shortness of breath completely resolved Also states cellulitis in leg more improved No more drainage No fevers or chills No acute events overnight Problem List Medical Problems: (1) Bilateral pneumonia Status: Acute (2) Cellulitis Status: Acute (3) Fever Status: Acute (4) Hypoxia Status: Acute (5) Hypoxia Status: Acute (6) Leukocytosis Status: Acute Review of Systems Constitutional: No fever, No chills, No sweats, No weight loss, No weakness Eyes: No worsening of vision, No eye pain, No redness, No discharge Respiratory: No cough, No sputum, No wheezing, No shortness of breath, No dyspnea on exertion Cardiac: No chest pain, No orthopnea, No PND, No edema Abdomen: No pain, No nausea, No vomiting, No diarrhea, No constipation Musculoskeletal: No joint pain, No muscle pain Female : No dysuria, No urinary frequency, No hematuria Neurologic: No memory loss, No paralysis, No weakness, No numbness/tingling Psychiatric: No depression symptoms, No anhedonism, No anxiety, No insomnia Endo: No fatigue Skin: No rash, No itch Objective Vital Signs Date Time Temp Pulse Resp B/P (MAP) Pulse Ox O2 Delivery O2 Flow Rate FiO2 08/19/16 11:32 90 16 96 Nasal Cannula 2.5 08/19/16 08:00 Nasal Cannula 3.0 08/19/16 07:32 36.7 64 16 125/64 (84) 93 Nasal Cannula 3.0 08/19/16 07:26 67 16 94 Nasal Cannula 3.0 08/19/16 00:00 Nasal Cannula 3.0 08/18/16 23:39 36.7 64 20 119/51 (73) 93 2.0 08/18/16 19:51 37.2 73 18 138/73 94 Nasal Cannula 3.0 08/18/16 19:48 68 16 96 Nasal Cannula 3.0 08/18/16 18:23 65 19 170/71 96 Nasal Cannula 3.0 08/18/16 17:57 66 22 157/90 92 Nasal Cannula 3.0 08/18/16 16:37 73 16 143/70 92 Nasal Cannula 3.0 08/18/16 15:38 37.8 80 22 127/75 87 Room Air 08/18/16 15:38 92 Nasal Cannula 2.0 08/18/16 15:38 92 Nasal Cannula 2.0 08/18/16 15:38 87 Room Air 08/18/16 15:34 81 Physical Exam General Appearance: WD/WN, no apparent distress Neck: supple, no adenopathy, thyroid normal, no JVD Respiratory/Chest: chest non-tender, lungs clear, normal breath sounds, no respiratory distress Cardiovascular: regular rate, rhythm, no edema, no gallop, no JVD Abdomen: normal bowel sounds, non tender, soft, no organomegaly Extremities: normal range of motion, non-tender, normal inspection, no pedal edema Neurologic/Psychiatric: no motor/sensory deficits, alert, normal mood/affect, oriented x 3 Laboratory Results Last 24 Hours Test 08/18/16 15:45 08/18/16 15:53 08/18/16 16:20 08/19/16 06:58 White Blood Count 15.41 K/uL 8.78 K/uL Red Blood Count 4.16 M/uL 3.75 M/uL Hemoglobin 12.1 g/dL 11.0 g/dL Hematocrit 39.8 % 35.5 % Mean Corpuscular Volume 95.7 fL 94.7 fL Mean Corpuscular Hemoglobin 29.1 pg 29.3 pg Mean Corpuscular Hemoglobin Concent 30.4 g/dl 31.0 g/dl Platelet Count 247 K/uL 246 K/uL Mean Platelet Volume 10.1 fL 10.2 fL Neutrophils (%) (Auto) 79.3 % Lymphocytes (%) (Auto) 11.6 % Monocytes (%) (Auto) 7.3 % Eosinophils (%) (Auto) 1.2 % Basophils (%) (Auto) 0.3 % Neutrophils # (Auto) 12.25 K/uL Lymphocytes # (Auto) 1.78 K/uL Monocytes # (Auto) 1.12 K/uL Eosinophils # (Auto) 0.18 K/uL Basophils # (Auto) 0.04 K/uL RDW Standard Deviation 56.7 fL 57.4 fL RDW Coefficient of Variation 16.3 % 16.5 % Immature Granulocyte % (Auto) 0.3 % Immature Granulocyte # (Auto) 0.04 K/uL Prothrombin Time 10.5 SECONDS Prothromb Time International Ratio 1.0 Activated Partial Thromboplast Time 26.1 SECONDS Partial Thromboplastin Ratio 1.0 Venous Blood pH 7.36 Venous Blood Partial Pressure CO2 53 mmHg Venous Blood Partial Pressure O2 31 mmHg Venous Blood HCO3 29 mmol/L Venous Blood Oxygen Saturation 62.4 % Venous Blood Base Excess 2.8 mmol/L Sodium Level 143 mmol/L 144 mmol/L Potassium Level 4.4 mmol/L 4.6 mmol/L Chloride Level 109 mmol/L 109 mmol/L Carbon Dioxide Level 27 mmol/L 29 mmol/L Anion Gap 7.0 mmol/L 6.0 mmol/L Blood Urea Nitrogen 27 mg/dl 32 mg/dl Creatinine 1.70 mg/dl 1.90 mg/dl Est Creatinine Clear Calc Drug Dose 29.9 ml/min 27.2 ml/min Estimated GFR () 30.7 26.8 Estimated GFR (Non- 26.5 23.1 BUN/Creatinine Ratio 16.1 16.6 Random Glucose 102 mg/dl 161 mg/dl Calcium Level 8.7 mg/dl 8.8 mg/dl Total Bilirubin 0.3 mg/dl 0.2 mg/dl Aspartate Amino Transf (AST/SGOT) 17 U/L 15 U/L Alanine Aminotransferase (ALT/SGPT) 18 U/L 19 U/L Alkaline Phosphatase 111 U/L 103 U/L Troponin I < 0.015 ng/ml Pro-B-Type Natriuretic Peptide 1630 pg/ml Total Protein 6.2 gm/dl 6.0 gm/dl Albumin 2.9 gm/dl 2.5 gm/dl Globulin 3.3 gm/dl Albumin/Globulin Ratio 0.9 Lactic Acid Level 1.5 mmol/L Urine Color YELLOW Urine Appearance CLEAR Urine pH 5.0 Urine Specific [place] 1.020 Urine Protein NEG Urine Glucose (UA) NEG Urine Ketones NEG Urine Occult Blood NEG Urine Nitrite POS Urine Bilirubin NEG Urine Urobilinogen NEG Urine Leukocyte Esterase SMALL Urine WBC (Auto) 10-30 /hpf Urine RBC (Auto) 0-4 /hpf Urine Hyaline Casts (Auto) 1-5 /lpf Urine Epithelial Cells (Auto) 20-30 /lpf Urine Bacteria (Auto) 1+ Direct Bilirubin < 0.1 mg/dl Assessment and Plan 86-year-old female with acute hypoxic respiratory failure with a baseline history of chronic respiratory failure requiring nocturnal oxygen, likely exacerbated by aspiration of pill. Right lower extremity cellulitis on a background of chronic venous stasis For her COPD nebulized albuterol ipratropium and formoterol, intravenous steroids, supplemental oxygen. Improvement states at baseline. Pt does wear O2 at night Lower extremity cellulitis - Improving, cont zosyn day #2, wound consult placed. Noted clear drainage from wound site Cor pulmonale/edema - Cont IV lasix daily. Continue Coreg, Cozaar, last echo January/2016 showed preserved ejection fraction Hypothyroidism - Clinically euthyroid continue Synthroid Dry mouth, continue Diflucan for thrush (holding Crestor) use Peridex DVT prevention is heparin Pt is FULL CODE
[2016-08-19 15:15] VITALS: PULSE 62; O2SAT 94
[2016-08-19 15:25] VITALS: BP 121/69; PULSE 69; TEMP 36.9; O2SAT 93
[2016-08-19] MEDS ORDERED: CIPROFLOXACIN CONSULT ACTIVE PRN ×2 (15:30)
[2016-08-19] MEDS: CIPROFLOXACIN 400MG / D5W IV SCH (16:00)
[2016-08-19 19:00] VITALS: PULSE 69; O2SAT 93
[2016-08-19] MEDS: TRAZODONE HCL 100 MG TAB PO SCH (21:00)
[2016-08-19] MEDS: ROPINIROLE HCL 1 MG TAB PO SCH (21:00)
[2016-08-19] MEDS: SERTRALINE HCL 100 MG TAB PO SCH (21:01)
[2016-08-19] MEDS: FLUCONAZOLE 100 MG TAB PO SCH (21:02)
[2016-08-19] MEDS: MONTELUKAST SOD 10 MG TAB PO SCH (21:02)
[2016-08-20] VITALS (11 sets, daily range): BP systolic 141–175; BP diastolic 77–82; PULSE 60–78; TEMP 36.5–36.7; O2SAT 87–99
[2016-08-20] MEDS: CIPROFLOXACIN 400MG / D5W IV SCH ×2 (04:25→16:04)
[2016-08-20] MEDS: LEVOTHYROXINE 150 MCG TAB PO SCH (05:57)
[2016-08-20] MEDS: SYSTANE~ORDER AWAITING ACTION SCH ×2 (07:25→15:12)
[2016-08-20] MEDS: FORMOTEROL FUMA NEBULIZER SOLN 20 MCG/2 ML VIAL INH SCH ×2 (07:30→19:34)
[2016-08-20] MEDS: ALBUT/IPRATROP 3MG/0.5MG NEB 3 ML VIAL INH SCH ×4 (07:30→19:34)
[2016-08-20] MEDS: PREGABALIN 50 MG CAP PO SCH ×2 (08:33→20:44)
[2016-08-20] MEDS: SENNA 8.6 MG TAB PO SCH ×2 (08:33→20:42)
[2016-08-20] MEDS: CHLORHEXIDINE GLUCONATE 0.12% 480 ML MT SCH ×3 (08:34→20:35)
[2016-08-20] MEDS: LOSARTAN POTASSIUM 50 MG TAB PO SCH (08:34)
[2016-08-20] MEDS: PANTOprazole SOD 40 MG TAB PO SCH (08:34)
[2016-08-20] MEDS: METHYLPREDNISOLONE IV 40 MG in SYRINGE 0 ML IV SCH ×2 (08:34→20:35)
[2016-08-20] MEDS: FUROSEMIDE INJ 20 MG in SYRINGE 0 ML IV SCH (08:34)
[2016-08-20] MEDS: ASPIRIN 81 MG ECTAB PO SCH (08:34)
[2016-08-20] MEDS: CEROVITE ADV FORMULA TAB PO SCH ×2 (08:34→20:41)
[2016-08-20] MEDS: FEXOFENADINE HCL 180 MG TAB PO SCH ×2 (08:35→20:41)
[2016-08-20] MEDS: CARVEDILOL 12.5 MG TAB PO SCH ×2 (08:35→20:40)
[2016-08-20] MEDS: HEPARIN SOD 5000 UNIT/0.5 ML CARP SQ SCH ×2 (08:41→20:39)
--- NOTE | 2016-08-20 13:54 | Progress Note ---
Subjective Date of Service: Aug 20, 2016. Subjective Pt evaluation today including: conversation w/ patient, physical exam, chart review, lab review, review of studies, review of inpatient medication list Reports no more shortness of breath Still clear sputum production Cellulitis improved No pain and redness is minimal No other concerns No acute events overnight Problem List Medical Problems: (1) Bilateral pneumonia Status: Acute (2) Cellulitis Status: Acute (3) Fever Status: Acute (4) Hypoxia Status: Acute (5) Hypoxia Status: Acute (6) Leukocytosis Status: Acute Review of Systems Constitutional: No fever, No chills, No sweats, No weight loss, No weakness ENT: No hearing loss, No unusual epistaxis, No nasal symptoms, No sore throat Respiratory: No cough, No sputum, No wheezing, No shortness of breath, No dyspnea on exertion Cardiac: No chest pain, No orthopnea, No PND, No edema, No claudication Abdomen: No pain, No nausea, No vomiting, No diarrhea, No constipation Musculoskeletal: No joint pain, No muscle pain, No swelling Female : No dysuria, No urinary frequency, No hematuria Neurologic: No memory loss, No paralysis, No weakness, No numbness/tingling Psychiatric: No depression symptoms, No anhedonism, No anxiety, No insomnia Skin: No rash, No itch Objective Vital Signs Date Time Temp Pulse Resp B/P (MAP) Pulse Ox O2 Delivery O2 Flow Rate FiO2 08/20/16 11:26 61 16 91 Room Air 08/20/16 11:13 142/77 (98) 08/20/16 08:00 93 Nasal Cannula 2.0 08/20/16 07:58 36.7 70 16 175/81 (112) 93 Nasal Cannula 2.0 08/20/16 07:30 60 16 94 Nasal Cannula 2.0 08/20/16 00:01 36.5 60 20 141/77 (98) 93 Room Air 08/20/16 00:00 Nasal Cannula 2.0 08/19/16 19:00 69 16 93 Nasal Cannula 2.0 08/19/16 16:00 Nasal Cannula 3.0 08/19/16 15:25 36.9 69 18 121/69 (86) 93 Nasal Cannula 2.0 08/19/16 15:15 62 16 94 Nasal Cannula 2.0 Physical Exam General Appearance: WD/WN, no apparent distress ENT: normal ENT inspection, hearing grossly normal, TMs normal, pharynx normal Neck: supple, no adenopathy, thyroid normal, no JVD Respiratory/Chest: chest non-tender, no accessory muscle use, + decreased breath sounds, + wheezing Cardiovascular: regular rate, rhythm, no edema, no gallop, no JVD Abdomen: normal bowel sounds, non tender, soft, no organomegaly Neurologic/Psychiatric: no motor/sensory deficits, alert, normal mood/affect, oriented x 3 Assessment and Plan 86-year-old female with acute hypoxic respiratory failure with a baseline history of chronic respiratory failure requiring nocturnal oxygen, likely exacerbated by aspiration of pill. Right lower extremity cellulitis on a background of chronic venous stasis For her COPD nebulized albuterol ipratropium and formoterol, intravenous steroids, supplemental oxygen. Improvement states at baseline. Pt does wear O2 at night. Leukocytosis resolved. Wean off O2. No more shortness of breath. Likely DC back to personal [facility] in next 24 hrs Lower extremity cellulitis - Improving, cont cipro, cant convert to PO, will need 7 day course total, wound consult placed. Noted clear drainage from wound site Cor pulmonale/edema - Cont IV lasix daily. Continue Coreg, Cozaar, last echo January/2016 showed preserved ejection fraction Hypothyroidism - Clinically euthyroid continue Synthroid Dry mouth, continue Diflucan for thrush (holding Crestor) use Peridex DVT prevention is heparin Pt is FULL CODE
[2016-08-20] MEDS: SERTRALINE HCL 100 MG TAB PO SCH (20:40)
[2016-08-20] MEDS: MONTELUKAST SOD 10 MG TAB PO SCH (20:40)
[2016-08-20] MEDS: TRAZODONE HCL 100 MG TAB PO SCH (20:41)
[2016-08-20] MEDS: ROPINIROLE HCL 1 MG TAB PO SCH (20:41)
[2016-08-20] MEDS: FLUCONAZOLE 100 MG TAB PO SCH (20:42)
--- NOTE | 2016-08-20 22:47 | DIAGNOSTIC IMAGING REPORT ---
SINGLE VIEW CHEST CLINICAL HISTORY: Dyspnea. Suspected aspiration. FINDINGS: An AP, portable, upright chest radiograph is compared to study dated 08/18/2016 and correlated with chest CT dated 05/19/2016. The examination is significant degraded by portable technique, apical lordotic positioning, and patient rotation. A 2-lead cardiac pacemaker is unchanged in position. The heart is enlarged and there is atherosclerotic calcification of the thoracic aorta. The pulmonary vasculature is noncongested. Emphysema and chronic interstitial thickening are similar to previous. There is a small left pleural effusion with left basilar consolidation. The right lung is grossly clear. No pneumothorax is seen. The skeletal structures are osteopenic. The bony thorax is grossly intact. Degenerative change is noted in the shoulders and thoracic spine. Fusion hardware is seen in the upper lumbar spine. IMPRESSION: 1. Cardiomegaly and cardiac pacemaker. There is no radiographic evidence of congestive failure. 2. Emphysema. 3. There is a small left pleural effusion with left basilar consolidation. This could present atelectasis, aspiration, and/or developing pneumonia. Clinical correlation will be required. Radiographic follow-up to resolution is recommended Electronically signed by: Kalin Castillo M.D. 08/20/2016 10:46 PM Dictated Date/Time: 08/20/2016 10:44 PM
[2016-08-21] VITALS (13 sets, daily range): BP systolic 152–177; BP diastolic 74–98; PULSE 64–94; TEMP 36.4–36.6; O2SAT 93–96
[2016-08-21] MEDS: LEVOTHYROXINE 150 MCG TAB PO SCH (06:02)
[2016-08-21 07:02] LABS: BUN/CREATININE RATIO 24.2 (10-20); CREATININE 1.8 mg/dl (0.60-1.20); POTASSIUM 4.2 mmol/L (3.5-5.1)
[2016-08-21] MEDS: ALBUT/IPRATROP 3MG/0.5MG NEB 3 ML VIAL INH SCH ×4 (07:02→19:36)
[2016-08-21] MEDS: FORMOTEROL FUMA NEBULIZER SOLN 20 MCG/2 ML VIAL INH SCH ×2 (07:02→19:39)
[2016-08-21] MEDS: SYSTANE~ORDER AWAITING ACTION SCH ×3 (07:53→15:10)
[2016-08-21] MEDS: FUROSEMIDE INJ 20 MG in SYRINGE 0 ML IV SCH (07:53)
[2016-08-21] MEDS: LOSARTAN POTASSIUM 50 MG TAB PO SCH (07:54)
[2016-08-21] MEDS: CHLORHEXIDINE GLUCONATE 0.12% 480 ML MT SCH ×3 (07:54→20:43)
[2016-08-21] MEDS: ASPIRIN 81 MG ECTAB PO SCH (07:54)
[2016-08-21] MEDS: METHYLPREDNISOLONE IV 40 MG in SYRINGE 0 ML IV SCH (07:54)
[2016-08-21] MEDS: SENNA 8.6 MG TAB PO SCH ×2 (07:54→20:45)
[2016-08-21] MEDS: CARVEDILOL 12.5 MG TAB PO SCH ×2 (07:54→20:44)
[2016-08-21] MEDS: PANTOprazole SOD 40 MG TAB PO SCH (07:54)
[2016-08-21] MEDS: FEXOFENADINE HCL 180 MG TAB PO SCH ×2 (07:55→20:45)
[2016-08-21] MEDS: CEROVITE ADV FORMULA TAB PO SCH ×2 (07:55→20:44)
[2016-08-21] MEDS: PREGABALIN 50 MG CAP PO SCH ×2 (07:55→20:43)
[2016-08-21] MEDS: HEPARIN SOD 5000 UNIT/0.5 ML CARP SQ SCH ×2 (07:57→20:55)
[2016-08-21 08:20] LABS: HEMATOCRIT 37.5 % (37-47); MEAN CELL VOLUME 95.2 fL (80-100); MEAN CORPUSCULAR HEMOGLOBIN 29.2 pg (25-34); MEAN CORPUSCULAR HGB CONC 30.7 g/dl (32-36); MEAN PLATELET VOLUME 10.9 fL (7.4-10.4); PLATELET COUNT 289 K/uL (130-400); RED BLOOD COUNT 3.94 M/uL (4.2-5.4); WHITE BLOOD COUNT 11.56 K/uL (4.8-10.8)
--- NOTE | 2016-08-21 08:28 | Clinical Documentation Query ---
QUERY 1 OF [address] MARTINEZ, The diagnosis of COPD is noted in the clinical record. Please specify level of acuity In your clinical opinion is this patient being managed for: ( x) exacerbation of COPD ( ) COPD without exacerbation ( ) Other explanation of clinical findings (Please Explain) ( ) Unable to determine (Please Define) ( ) Need to Discuss ( ) Not Agree QUERY 2 OF 2 In your clinical opinion is this patient being managed for: ( x ) ÁNGELA on CKD stage 3-4 ( ) Other explanation of clinical findings (Please Explain) ( ) Unable to determine (Please Define) ( ) Need to Discuss ( ) Not Agree The medical record reflects the following clinical findings, treatment, and risk factors. Clinical Indicators: 86 yo female presenting with acute on chronic respiratory failure. Review of historical Cr and GFR values revealed a range of Cr baseline 1.4-1.6 and GFR range of 24.7-33.7 over the past 2 years. Pt presented with a Cr of 1.7 which jesus to 1.9 max. Treatment: monitor PRP's, treat comorbid conditions Risk Factors: IV lasix doses, acute on chronic respiratory failure, age, HTN, COPD Please clarify and document your clinical opinion in the progress notes and discharge summary. Terms such as "probable", "suspected", "likely", "questionable", "possible", or "still to be ruled out" are acceptable. IF IN AGREEMENT, YOU MUST DOCUMENT ABOVE DIAGNOSTIC STATEMENT IN DAILY PROGRESS NOTES AND DISCHARGE SUMMARY. This document is not part of the patient's record. Thank You, Bernadette Gan, RN [phone]
--- NOTE | 2016-08-21 11:24 | Hospitalist Progress Note ---
Hospitalist Progress Note Date of Service Aug 21, 2016. Subjective Pt evaluation today including: conversation w/ patient, physical exam, chart review, lab review, review of studies, review of inpatient medication list Voiding: sexton catheter in place (draining concentrated yellow urine) Patient states she is feeling well. She is eating and drinking OK. + non-productive cough. +SOB but improving. Patient denies any fever, chills, sweats, lightheadedness, dizziness, vision changes, CP, palpitations, edema, wheezing, abdominal pain, nausea, vomiting, diarrhea, urinary symptoms, melena, numbness/tingling, weakness, muscle/joint pain, anxiety/depression, active bleeding, or new skin discoloration/changes. Medications Current Inpatient Medications Medications (Trade) Dose Ordered Sig/Lucien Route Start Time Stop Time Status Last Admin Dose Admin Acetaminophen (Tylenol Tab) 650 mg Q4 PRN PO 08/18/16 18:00 09/17/16 17:59 Aspirin (Ecotrin Tab) 81 mg DAILY PO 08/19/16 08:00 09/18/16 08:59 08/21/16 07:54 81 MG Bisacodyl (Dulcolax Supp) 10 mg DAILY PRN [place] 08/18/16 18:00 09/17/16 17:59 Calcium Carbonate (Tums Chew Tab) 500 mg Q4H PRN PO 08/18/16 18:00 09/17/16 17:59 Carvedilol (Coreg Tab) 12.5 mg BID PO 08/18/16 20:00 09/17/16 20:59 08/21/16 07:54 12.5 MG Fexofenadine HCl (Ade Tab) 180 mg BID PO 08/18/16 20:00 09/17/16 20:59 08/21/16 07:55 180 MG Fluconazole (Diflucan Tab) 200 mg QPM PO 08/18/16 21:00 08/28/16 20:59 08/20/16 20:42 200 MG Levothyroxine Sodium (Synthroid Tab) 150 mcg DAILYBB PO 08/19/16 06:30 09/18/16 06:29 08/21/16 06:02 150 MCG Losartan Potassium (coZAAR TAB) 50 mg DAILY PO 08/19/16 08:00 09/18/16 08:59 08/21/16 07:54 50 MG Magnesium Hydroxide (Milk Of Magnesia Susp) 30 ml Q6H PRN PO 08/18/16 18:00 09/17/16 17:59 Montelukast Sodium (Singulair Tab) 10 mg PM PO 08/18/16 20:00 09/17/16 19:59 08/20/16 20:40 10 MG Nitroglycerin (Nitrostat Tab) 0.4 mg PRN UT 08/18/16 18:00 09/17/16 17:59 Multivitamins/ Minerals (Multivitamin W/ Minerals Tab) 1 tab BID PO 08/18/16 20:00 09/17/16 20:59 08/21/16 07:55 1 TAB Pantoprazole Sodium (Protonix Tab) 40 mg QAM PO 08/19/16 08:00 09/18/16 08:59 08/21/16 07:54 40 MG Pregabalin (Lyrica Cap) 50 mg BID PO 08/18/16 20:00 09/17/16 20:59 08/21/16 07:55 50 MG Ropinirole HCl (Requip Tab) 1 mg HS PO 08/18/16 21:00 09/17/16 20:59 08/20/16 20:41 1 MG Senna (Senokot Tab) 8.6 mg BID PO 08/18/16 20:00 09/17/16 20:59 08/21/16 07:54 8.6 MG Sertraline HCl (Zoloft Tab) 200 mg HS PO 08/18/16 21:00 09/17/16 20:59 08/20/16 20:40 200 MG Tramadol HCl (Ultram Tab) 25 mg Q8H PRN PO 08/18/16 18:00 09/17/16 17:59 08/19/16 08:28 25 MG Trazodone HCl (Desyrel Tab) 100 mg HS PO 08/18/16 21:00 09/17/16 20:59 08/20/16 20:41 100 MG Nystatin (Mycostatin Powder) 1 appln DAILY PRN EXT 08/18/16 20:00 09/17/16 19:59 08/19/16 08:20 1 APPLN Miscellaneous Information (Order Awaiting Action) 1 ea QS N/A 08/19/16 00:00 09/18/16 00:00 Furosemide 20 mg/ Syringe 2 ml @ 4 mls/min DAILY IV 08/18/16 20:30 09/17/16 20:29 08/21/16 07:53 4 MLS/MIN Methylprednisolone Sodium Succinate 40 mg/Syringe 0.64 ml @ 1.5 mls/min Q12H IV 08/18/16 20:00 09/17/16 19:59 08/21/16 07:54 1.5 MLS/MIN Formoterol Fumarate (Perforomist 20MCG/2ML Neb Soln) 20 mcg BID INH 08/18/16 20:00 09/17/16 20:59 08/21/16 07:02 20 MCG Albuterol/ Ipratropium (Duoneb) 3 ml QIDR INH 08/18/16 20:00 09/17/16 19:59 08/20/16 15:46 3 ML Albuterol/ Ipratropium (Duoneb) 3 ml Q2H PRN INH 08/18/16 18:15 09/17/16 18:14 08/20/16 18:15 3 ML Al Hydrox/Mg Hydrox/Simethicone (Maalox Max Susp) 15 ml Q4H PRN PO 08/18/16 18:15 09/17/16 18:14 Polyethylene (Miralax Powder Packet) 17 gm DAILY PRN PO 08/18/16 18:15 09/17/16 18:14 Ondansetron HCl (Zofran Inj) 4 mg Q6H PRN IV 08/18/16 18:15 09/17/16 18:14 Heparin Sodium (Porcine) (Heparin Sq 5000 Unit/0.5ml) 5,000 unit Q12 SQ 08/18/16 21:00 09/17/16 20:59 08/21/16 07:57 5,000 UNIT Chlorhexidine Gluconate (Peridex Oral Soln) 15 ml TID MT 08/18/16 20:00 09/17/16 20:59 08/21/16 07:54 15 ML Ciprofloxacin (Consult) 1 ea UD PRN N/A 08/19/16 15:30 09/18/16 15:29 Ciprofloxacin (Cipro Tab) 500 mg DAILY@1600 PO 08/21/16 16:00 08/29/16 16:01 Objective Vital Signs Date Time Temp Pulse Resp B/P (MAP) Pulse Ox O2 Delivery O2 Flow Rate FiO2 08/21/16 08:00 93 Nasal Cannula 2.0 08/21/16 07:33 36.4 69 18 154/94 (114) 96 2.0 08/21/16 07:04 66 16 94 Nasal Cannula 2.0 08/21/16 00:07 36.6 66 18 157/74 (101) 94 Room Air 08/21/16 00:00 Nasal Cannula 2.0 08/20/16 19:34 78 18 87 Room Air 08/20/16 18:15 74 20 99 Nasal Cannula 2.0 08/20/16 16:00 93 Room Air 08/20/16 15:59 36.6 67 18 157/82 (107) 91 Room Air 08/20/16 15:30 64 16 92 Room Air 08/20/16 11:26 61 16 91 Room Air 08/20/16 11:13 142/77 (98) Physical Exam General Appearance: no apparent distress, + obese, + pertinent finding (2L NC O2 supplement ) Eyes: normal inspection, PERRL ENT: hearing grossly normal Neck: supple Respiratory/Chest: no respiratory distress, no accessory muscle use, + decreased breath sounds (> at bilateral lung bases ), + crackles (bilateral lung bases ), + wheezing (expiratory wheeze noted ), + pertinent finding ( coarse BS throughout ) Cardiovascular: regular rate, rhythm Abdomen: normal bowel sounds, non tender, soft Extremities: no pedal edema, no calf tenderness, + pertinent finding (RLE extremity wound on distal/lateral estevez region in clean bandage ) Neurologic/Psychiatric: alert, normal mood/affect, oriented x 3 Skin: normal color, warm/dry, no rash Laboratory Results Last 24 Hours Test 08/21/16 06:01 White Blood Count 11.56 K/uL Red Blood Count 3.94 M/uL Hemoglobin 11.5 g/dL Hematocrit 37.5 % Mean Corpuscular Volume 95.2 fL Mean Corpuscular Hemoglobin 29.2 pg Mean Corpuscular Hemoglobin Concent 30.7 g/dl RDW Standard Deviation 56.6 fL RDW Coefficient of Variation 16.1 % Platelet Count 289 K/uL Mean Platelet Volume 10.9 fL Sodium Level 145 mmol/L Potassium Level 4.2 mmol/L Chloride Level 109 mmol/L Carbon Dioxide Level 29 mmol/L Anion Gap 7.0 mmol/L Blood Urea Nitrogen 44 mg/dl Creatinine 1.80 mg/dl Est Creatinine Clear Calc Drug Dose 28.7 ml/min Estimated GFR () 28.6 Estimated GFR (Non- 24.7 BUN/Creatinine Ratio 24.2 Random Glucose 149 mg/dl Calcium Level 9.0 mg/dl Assessment and Plan 86-year-old female, w/ PMHx of COPD, hypothyroidism, cor pulmonale, HTN, CKD, dyslipidemia, depression, RLS, neuropathy, and GERD, who presented with acute hypoxic respiratory failure. Acute on chronic respiratory failure w/ exacerbation likely secondary to pill aspiration- IMPROVING: - Admit to med/surg - O2 protocol, wean as tolerated- patient wears 2L nocturnal O2 supplement - BCx- NGTD - Continue DuoNeb QID and Formoterol BID - IV Solu Medrol 40 mg BID- decreased to daily, continue to wean and transition to PO Prednisone taper - Ongoing dysphagia- follows w/ Dr. Hutchinson closely and states she follows recommend diet- she is scheduled to have video swallow outpatient Recurrent leukocytosis, likely secondary to IV steroid: Follow CBC UTI- pseudomonas aeruginosa: Treating w/ Cipro as above Lower extremity cellulitis- IMPROVING: - Continue Cipro 500 mg daily x7 days (started on 08/19) - Wound care consulted Thrush: Continue Diflucan, Peridex Cor pulmonale/edema- ECHO in Jan 2016 w/ preserved EF: - Treating w/ IV Lasix 20 mg daily- holding PO Lasix 20 mg daily - Sexton placed to monitor I&Os- good negative balance and UO - Continue Coreg 12.5 mg BID, ASA 81 mg daily HTN- ACCEPTABLE pressures: Losartan 50 mg daily CKD stage III-IV, 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
[2016-08-21] MEDS: CIPROFLOXACIN 500 MG TAB PO SCH (15:40)
[2016-08-21] MEDS: FLUCONAZOLE 100 MG TAB PO SCH (20:45)
[2016-08-21] MEDS: MONTELUKAST SOD 10 MG TAB PO SCH (21:33)
[2016-08-21] MEDS: SERTRALINE HCL 100 MG TAB PO SCH (21:34)
[2016-08-21] MEDS: ROPINIROLE HCL 1 MG TAB PO SCH (21:34)
[2016-08-21] MEDS: TRAZODONE HCL 100 MG TAB PO SCH (21:34)
[2016-08-22] VITALS (8 sets, daily range): BP systolic 149–186; BP diastolic 71–94; PULSE 61–79; TEMP 36.4–36.6; O2SAT 91–96
[2016-08-22] MEDS: LEVOTHYROXINE 150 MCG TAB PO SCH (06:27)
[2016-08-22] MEDS: FORMOTEROL FUMA NEBULIZER SOLN 20 MCG/2 ML VIAL INH SCH ×2 (07:31→18:45)
[2016-08-22] MEDS: ALBUT/IPRATROP 3MG/0.5MG NEB 3 ML VIAL INH SCH ×5 (07:32→23:10)
[2016-08-22] MEDS: FUROSEMIDE INJ 20 MG in SYRINGE 0 ML IV SCH (07:53)
[2016-08-22] MEDS: FEXOFENADINE HCL 180 MG TAB PO SCH ×2 (07:54→20:30)
[2016-08-22] MEDS: CHLORHEXIDINE GLUCONATE 0.12% 480 ML MT SCH ×3 (07:54→20:33)
[2016-08-22] MEDS: CARVEDILOL 12.5 MG TAB PO SCH ×2 (07:55→20:29)
[2016-08-22] MEDS: LOSARTAN POTASSIUM 50 MG TAB PO SCH (07:55)
[2016-08-22] MEDS: SENNA 8.6 MG TAB PO SCH ×2 (07:56→20:31)
[2016-08-22] MEDS: PANTOprazole SOD 40 MG TAB PO SCH (07:56)
[2016-08-22] MEDS: PREGABALIN 50 MG CAP PO SCH ×2 (07:58→20:35)
[2016-08-22] MEDS: SYSTANE~ORDER AWAITING ACTION SCH ×4 (08:00→23:01)
[2016-08-22] MEDS ORDERED: METHYLPREDNISOLONE IV 40 MG in SYRINGE 0 ML IV SCH (08:00)
[2016-08-22] MEDS: CEROVITE ADV FORMULA TAB PO SCH ×2 (09:25→20:31)
[2016-08-22] MEDS: ASPIRIN 81 MG ECTAB PO SCH (09:25)
[2016-08-22] MEDS: HEPARIN SOD 5000 UNIT/0.5 ML CARP SQ SCH ×2 (09:34→20:36)
--- NOTE | 2016-08-22 10:40 | Hospitalist Progress Note ---
Hospitalist Progress Note Date of Service Aug 22, 2016. Subjective Pt evaluation today including: conversation w/ patient, physical exam, chart review, lab review, review of studies, review of inpatient medication list Voiding: incontinence (chronic ) Patient states she is feeling well this AM. She is eating and drinking OK- denies any aspiration or choking events. +non-productive cough. +SOB w/ exertion- ongoing issue. Admits to urinary incontinence since removing Rodriguez yesterday- ongoing issue due to not being able to get to the restroom quick enough. Patient uses a wheelchair. Examined her RLE wound together- patient noted significant improvement. Last bandage changed was on 08/19, asked nursing staff to place clean bandage today. Patient denies any fever, chills, sweats, lightheadedness, dizziness, vision changes, CP, palpitations, edema, wheezing, abdominal pain, nausea, vomiting, diarrhea, melena, numbness/tingling, weakness, muscle/joint pain, anxiety/ depression, active bleeding, or new skin discoloration/changes. Medications Current Inpatient Medications Medications (Trade) Dose Ordered Sig/Lucien Route Start Time Stop Time Status Last Admin Dose Admin Acetaminophen (Tylenol Tab) 650 mg Q4 PRN PO 08/18/16 18:00 09/17/16 17:59 Aspirin (Ecotrin Tab) 81 mg DAILY PO 08/19/16 08:00 09/18/16 08:59 08/22/16 09:25 81 MG Bisacodyl (Dulcolax Supp) 10 mg DAILY PRN [place] 08/18/16 18:00 09/17/16 17:59 Calcium Carbonate (Tums Chew Tab) 500 mg Q4H PRN PO 08/18/16 18:00 09/17/16 17:59 Carvedilol (Coreg Tab) 12.5 mg BID PO 08/18/16 20:00 09/17/16 20:59 08/22/16 07:55 12.5 MG Fexofenadine HCl (Ade Tab) 180 mg BID PO 08/18/16 20:00 09/17/16 20:59 08/22/16 07:54 180 MG Fluconazole (Diflucan Tab) 200 mg QPM PO 08/18/16 21:00 08/28/16 20:59 08/21/16 20:45 200 MG Levothyroxine Sodium (Synthroid Tab) 150 mcg DAILYBB PO 08/19/16 06:30 09/18/16 06:29 08/22/16 06:27 150 MCG Losartan Potassium (coZAAR TAB) 50 mg DAILY PO 08/19/16 08:00 09/18/16 08:59 08/22/16 07:55 50 MG Magnesium Hydroxide (Milk Of Magnesia Susp) 30 ml Q6H PRN PO 08/18/16 18:00 09/17/16 17:59 Montelukast Sodium (Singulair Tab) 10 mg PM PO 08/18/16 20:00 09/17/16 19:59 08/21/16 21:33 10 MG Nitroglycerin (Nitrostat Tab) 0.4 mg PRN UT 08/18/16 18:00 09/17/16 17:59 Multivitamins/ Minerals (Multivitamin W/ Minerals Tab) 1 tab BID PO 08/18/16 20:00 09/17/16 20:59 08/22/16 09:25 1 TAB Pantoprazole Sodium (Protonix Tab) 40 mg QAM PO 08/19/16 08:00 09/18/16 08:59 08/22/16 07:56 40 MG Pregabalin (Lyrica Cap) 50 mg BID PO 08/18/16 20:00 09/17/16 20:59 08/22/16 07:58 50 MG Ropinirole HCl (Requip Tab) 1 mg HS PO 08/18/16 21:00 09/17/16 20:59 08/21/16 21:34 1 MG Senna (Senokot Tab) 8.6 mg BID PO 08/18/16 20:00 09/17/16 20:59 08/22/16 07:56 8.6 MG Sertraline HCl (Zoloft Tab) 200 mg HS PO 08/18/16 21:00 09/17/16 20:59 08/21/16 21:34 200 MG Tramadol HCl (Ultram Tab) 25 mg Q8H PRN PO 08/18/16 18:00 09/17/16 17:59 08/19/16 08:28 25 MG Trazodone HCl (Desyrel Tab) 100 mg HS PO 08/18/16 21:00 7/30/17 20:59 08/21/16 21:34 100 MG Nystatin (Mycostatin Powder) 1 appln DAILY PRN EXT 08/18/16 20:00 09/17/16 19:59 08/19/16 08:20 1 APPLN Miscellaneous Information (Order Awaiting Action) 1 ea QS N/A 08/19/16 00:00 09/18/16 00:00 Furosemide 20 mg/ Syringe 2 ml @ 4 mls/min DAILY IV 08/18/16 20:30 09/17/16 20:29 08/22/16 07:53 4 MLS/MIN Formoterol Fumarate (Perforomist 20MCG/2ML Neb Soln) 20 mcg BID INH 08/18/16 20:00 09/17/16 20:59 08/22/16 07:31 20 MCG Albuterol/ Ipratropium (Duoneb) 3 ml QIDR INH 08/18/16 20:00 09/17/16 19:59 08/21/16 19:36 3 ML Albuterol/ Ipratropium (Duoneb) 3 ml Q2H PRN INH 08/18/16 18:15 09/17/16 18:14 08/20/16 18:15 3 ML Al Hydrox/Mg Hydrox/Simethicone (Maalox Max Susp) 15 ml Q4H PRN PO 08/18/16 18:15 09/17/16 18:14 Polyethylene (Miralax Powder Packet) 17 gm DAILY PRN PO 08/18/16 18:15 09/17/16 18:14 Ondansetron HCl (Zofran Inj) 4 mg Q6H PRN IV 08/18/16 18:15 09/17/16 18:14 Heparin Sodium (Porcine) (Heparin Sq 5000 Unit/0.5ml) 5,000 unit Q12 SQ 08/18/16 21:00 09/17/16 20:59 08/22/16 09:34 5,000 UNIT Chlorhexidine Gluconate (Peridex Oral Soln) 15 ml TID MT 08/18/16 20:00 09/17/16 20:59 08/22/16 07:54 15 ML Ciprofloxacin (Consult) 1 ea UD PRN N/A 08/19/16 15:30 09/18/16 15:29 Ciprofloxacin (Cipro Tab) 500 mg DAILY@1600 PO 08/21/16 16:00 08/29/16 16:01 08/21/16 15:40 500 MG Methylprednisolone Sodium Succinate 40 mg/Syringe 0.64 ml @ 1.5 mls/min DAILY IV 08/22/16 08:00 09/17/16 19:59 08/22/16 07:53 1.5 MLS/MIN Objective Vital Signs Date Time Temp Pulse Resp B/P (MAP) Pulse Ox O2 Delivery O2 Flow Rate FiO2 08/22/16 07:32 74 16 93 Nasal Cannula 2.0 08/22/16 07:26 36.6 68 20 186/85 (118) 94 Nasal Cannula 2.0 08/22/16 00:03 36.5 61 20 157/94 (115) 94 2.0 08/22/16 00:00 Nasal Cannula 2.0 08/21/16 21:39 80 152/88 (109) 08/21/16 20:24 172/85 (114) 08/21/16 19:00 75 20 96 Nasal Cannula 2.0 08/21/16 16:51 177/74 (108) 08/21/16 16:00 93 Room Air 08/21/16 15:50 36.5 94 18 167/98 (121) 95 Nasal Cannula 2.0 08/21/16 15:49 36.4 68 20 95 Nasal Cannula 08/21/16 14:45 68 20 95 Nasal Cannula 2.0 08/21/16 11:06 64 16 95 Nasal Cannula 2.0 Physical Exam General Appearance: no apparent distress, + obese, + pertinent finding (2L O2 NC) Eyes: normal inspection, PERRL ENT: hearing grossly normal Neck: supple Respiratory/Chest: no respiratory distress, no accessory muscle use, + decreased breath sounds (bilateral lung bases ), + wheezing (mild expiratory wheeze throughout ) Cardiovascular: regular rate, rhythm Abdomen: normal bowel sounds, non tender, soft Extremities: no pedal edema, no calf tenderness, + pertinent finding (RLE distal/lateral estevez region w/ mild erythema and minimal serous drainage noted on banadage ) Neurologic/Psychiatric: alert, normal mood/affect, oriented x 3 Skin: normal color, warm/dry, no rash Assessment and Plan 86-year-old female, w/ PMHx of COPD, hypothyroidism, cor pulmonale, HTN, CKD, dyslipidemia, depression, RLS, neuropathy, and GERD, who presented with acute hypoxic respiratory failure. Acute on chronic respiratory failure w/ exacerbation likely secondary to pill aspiration- IMPROVING: - Admit to med/surg - O2 protocol, wean as tolerated- patient wears 2L nocturnal O2 supplement -- Discussed w/ nursing staff- try to get off daytime O2 today - BCx- NGTD - Continue DuoNeb QID increased to q4 hrs and Formoterol BID - IV Solu Medrol 40 mg BID- decreased to daily on 08/21- begin 40 mg PO Prednisone on 08/23 - Ongoing dysphagia- follows w/ Dr. Hutchinson closely and states she follows recommend diet- she is scheduled to have video swallow outpatient Recurrent leukocytosis, likely secondary to IV steroid: Follow CBC Lower extremity cellulitis- IMPROVING: - Continue Cipro 500 mg daily x7 days (started on 08/19) - Wound care consulted UTI- pseudomonas aeruginosa: Treating w/ Cipro as above Thrush: Continue Diflucan, Peridex Cor pulmonale/edema- ECHO in Jan 2016 w/ preserved EF: - Treated w/ IV Lasix 20 mg daily 08/18- 08/22- resume Lasix PO 20 mg daily on 08/23 - Rodriguez placed to monitor I&Os- good negative balance and UO- removed on 08/22 - Continue Coreg 12.5 mg BID, ASA 81 mg daily HTN- ACCEPTABLE pressures: Losartan 50 mg daily CKD stage III-IV, 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
[2016-08-22] MEDS: FUROSEMIDE 20 MG TAB PO SCH (12:46)
[2016-08-22] MEDS: CIPROFLOXACIN 500 MG TAB PO SCH (16:46)
[2016-08-22] MEDS: ROPINIROLE HCL 1 MG TAB PO SCH (20:29)
[2016-08-22] MEDS: FLUCONAZOLE 100 MG TAB PO SCH (20:30)
[2016-08-22] MEDS: TRAZODONE HCL 100 MG TAB PO SCH (20:31)
[2016-08-22] MEDS: SERTRALINE HCL 100 MG TAB PO SCH (20:31)
[2016-08-22] MEDS: MONTELUKAST SOD 10 MG TAB PO SCH (20:31)
[2016-08-23 00:30] VITALS: BP 151/85; PULSE 63; TEMP 36.5; O2SAT 91
[2016-08-23] MEDS: ALBUT/IPRATROP 3MG/0.5MG NEB 3 ML VIAL INH SCH ×4 (02:54→15:04)
[2016-08-23] MEDS: LEVOTHYROXINE 150 MCG TAB PO SCH (06:01)
[2016-08-23 07:00] VITALS: PULSE 65; O2SAT 91
[2016-08-23] MEDS: FORMOTEROL FUMA NEBULIZER SOLN 20 MCG/2 ML VIAL INH SCH (07:00)
[2016-08-23 07:57] LABS: HEMATOCRIT 41.4 % (37-47); MEAN CELL VOLUME 95.4 fL (80-100); MEAN CORPUSCULAR HEMOGLOBIN 29.5 pg (25-34); MEAN CORPUSCULAR HGB CONC 30.9 g/dl (32-36); MEAN PLATELET VOLUME 10.6 fL (7.4-10.4); PLATELET COUNT 287 K/uL (130-400); RED BLOOD COUNT 4.34 M/uL (4.2-5.4); WHITE BLOOD COUNT 10.02 K/uL (4.8-10.8)
[2016-08-23 08:00] VITALS: BP 170/89; PULSE 68; TEMP 36.6; O2SAT 93
[2016-08-23] MEDS: SYSTANE~ORDER AWAITING ACTION SCH ×2 (08:00→15:59)
[2016-08-23] MEDS ORDERED: FUROSEMIDE 20 MG TAB PO SCH (08:00)
[2016-08-23 08:30] LABS: BUN/CREATININE RATIO 31.8 (10-20); CALCIUM 9.7 mg/dl (8.5-10.1); CREATININE 1.8 mg/dl (0.60-1.20); MAGNESIUM 2.3 mg/dl (1.8-2.4); POTASSIUM 3.6 mmol/L (3.5-5.1)
[2016-08-23] MEDS: SENNA 8.6 MG TAB PO SCH (08:55)
[2016-08-23] MEDS: FEXOFENADINE HCL 180 MG TAB PO SCH (08:55)
[2016-08-23] MEDS: CEROVITE ADV FORMULA TAB PO SCH (08:55)
[2016-08-23] MEDS: ASPIRIN 81 MG ECTAB PO SCH (08:55)
[2016-08-23] MEDS: FUROSEMIDE 20 MG TAB PO SCH (08:56)
[2016-08-23] MEDS: PANTOprazole SOD 40 MG TAB PO SCH (08:56)
[2016-08-23] MEDS: LOSARTAN POTASSIUM 50 MG TAB PO SCH (08:57)
[2016-08-23] MEDS: CARVEDILOL 12.5 MG TAB PO SCH (08:57)
[2016-08-23] MEDS: PREGABALIN 50 MG CAP PO SCH (09:00)
[2016-08-23] MEDS: HEPARIN SOD 5000 UNIT/0.5 ML CARP SQ SCH (09:01)
[2016-08-23] MEDS: CHLORHEXIDINE GLUCONATE 0.12% 480 ML MT SCH ×2 (09:07→14:10)
[2016-08-23] MEDS ORDERED: PRED10TA PO (09:54)
[2016-08-23] MEDS ORDERED: CPR500 PO (09:58)
--- NOTE | 2016-08-23 10:24 | Discharge Summary ---
Discharge Summary Date of Service Aug 23, 2016. 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 Dyspnea. COMPARISON STUDY: Chest CT May 19, 2016 and chest radiograph July 11, 2016. FINDINGS: A dual lead left subclavian pacemaker is in place. Cardiomediastinal silhouette is stable. There is emphysema. No pneumothorax or pleural effusion is present. Mild bibasilar opacities are unchanged. IMPRESSION: No acute cardiopulmonary findings. No change in appearance of the chest. Electronically signed by: Nicolás Miller M.D. 08/18/2016 3:50 PM Dictated Date/Time: 08/18/2016 3:48 PM The status of this report is Signed. Draft = Not yet reviewed or approved by Radiologist. Signed = Reviewed and approved by Radiologist RIGHT KNEE 3 VIEWS CLINICAL HISTORY: Fall. Right knee pain. FINDINGS: AP, crosstable lateral, and sunrise views of the right knee are obtained. Correlation is made with radiographs of the right femur dated 10/22/2013. The skeletal structures are osteopenic. No fracture is seen. A right knee arthroplasty is in near anatomic alignment. There has been undersurface remodeling of the patella. No periprosthetic lucency is seen. A joint effusion is noted. Soft tissue swelling is present around the knee. There is atherosclerotic calcification of the popliteal artery. IMPRESSION: 1. Soft tissue swelling and joint effusion. No fracture is seen. 2. A right knee arthroplasty is in near-anatomic alignment. Electronically signed by: Kalin Castillo M.D. 08/18/2016 4:44 PM Dictated Date/Time: 08/18/2016 4:42 PM The status of this report is Signed. Draft = Not yet reviewed or approved by Radiologist. Signed = Reviewed and approved by Radiologist. SINGLE VIEW CHEST CLINICAL HISTORY: Dyspnea. Suspected aspiration. FINDINGS: An AP, portable, upright chest radiograph is compared to study dated 08/18/2016 and correlated with chest CT dated 05/19/2016. The examination is significant degraded by portable technique, apical lordotic positioning, and patient rotation. A 2-lead cardiac pacemaker is unchanged in position. The heart is enlarged and there is atherosclerotic calcification of the thoracic aorta. The pulmonary vasculature is noncongested. Emphysema and chronic interstitial thickening are similar to previous. There is a small left pleural effusion with left basilar consolidation. The right lung is grossly clear. No pneumothorax is seen. The skeletal structures are osteopenic. The bony thorax is grossly intact. Degenerative change is noted in the shoulders and thoracic spine. Fusion hardware is seen in the upper lumbar spine. IMPRESSION: 1. Cardiomegaly and cardiac pacemaker. There is no radiographic evidence of congestive failure. 2. Emphysema. 3. There is a small left pleural effusion with left basilar consolidation. This could present atelectasis, aspiration, and/or developing pneumonia. Clinical correlation will be required. Radiographic follow-up to resolution is recommended Electronically signed by: Kalin Castillo M.D. 08/20/2016 10:46 PM Dictated Date/Time: 08/20/2016 10:44 PM The status of this report is Signed. Draft = Not yet reviewed or approved by Radiologist. Signed = Reviewed and approved by Radiologist. Medication Reconciliation New Medications: Ciprofloxacin (Ciprofloxacin HCl) 500 Mg Tab 500 MG PO DAILY for 3 Days, #3 TAB Prednisone (Prednisone) 10 Mg Tab 10 MG PO UD for 13 Days, #30 TAB 40 mg x3 days, then 30 mg x3 days, then 20 mg x3 days, then 10 mg x2 days, then 5 mg x2 days Continued Medications: Acetaminophen (Tylenol) 325 Mg Tab 650 MG PO Q4 PRN for Pain or Fever, TAB MAX APAP = 3GM/24HRS Albuterol Sulf (Proventil 0.083% 2.5MG/3ML) 2.5 Mg/3 Ml Nebu 2.5 MG INH Q4 PRN for COUGH/WHEEZE, EA Aspirin Enteric Coated (Ecotrin Or Generic) 81 Mg Tab 81 MG PO DAILY, TAB Bisacodyl (Dulcolax) 10 Mg Sup 1 SUPP GA Q48HR PRN for Constipation, SUP Budesonide/Formoterol Fumarate (Symbicort 160/4.5 Inhaler ) Aero 2 PUFFS INH BID, INHALER Calcium Carbonate (Tums) 500 Mg Chew 1 TAB PO Q4H PRN for Indigestion Carvedilol (Coreg) 12.5 Mg Tab 12.5 MG PO BID, TAB Coenzyme Q10 (Ubidecarenone) (Co Q10) 200 Mg Cap 200 MG PO QAM Diphenhydramine Hcl (Benadryl Allergy) 25 Mg Tab 12.5 MG PO HS PRN for Sleep Fexofenadine HCl (Mucinex Allergy) 180 Mg Tab 1 TAB PO BID Fluconazole (Diflucan) 200 Mg Tab 200 MG PO QPM for 20 Days, TAB Furosemide (Lasix) 20 Mg Tab 20 MG PO QAM, TAB Guaifenesin (Siltussin Sa) 100 Mg/5 Ml Syp 10 ML PO Q6 PRN for Cough Hydrocortisone (Topical) (Hydrocortisone) 2.5 % Lot 1 APPLN TOP BID for STASIS DERMATITUS for 10 Days, #60 ML Levothyroxine Sodium (Levothyroxine Sodium) 150 Mcg Tab 1 TAB PO QAM for 90 Days, #90 TAB 3 Refills Loperamide Hcl (Loperamide Hcl) 2 Mg Tab 1 TAB PO DIRECTED PRN for Diarrhea Losartan Potassium (Cozaar) 50 Mg Tab 50 MG PO DAILY, TAB Magnesium Hydroxide (Milk Of Magnesia) 30 Ml Susp 30 ML PO PRN UD, ML PRN FOR NO BM, 2 DAYS Montelukast Sodium (Singulair) 10 Mg Tab 10 MG PO DAILY, TAB Neomycin-Bacitracin Zn-Polymyx (Triple Antibiotic) 1 Oin Oin 1 APPLN TOP DAILY PRN for APPLY TO RIGHT LEG Nitroglycerin (Nitrostat) 0.4 Mg Tab 0.4 MG UT PRN, BTL Nystatin (Bio-Statin) 56.7 Gm Powd 1 DOSE EXT DIRECTED PRN for PRN Ocuvite Preservision (Ocuvite Preservision) 1 Tab Tab 1 TAB PO BID, TAB Pantoprazole (Protonix) 40 Mg Tab 40 MG PO QAM, #30 TAB Polyethylene Glycol 3350 (Miralax) 1 Pow Pow 8.5 GM PO DAILY PRN for Constipation, #255 GM Polyethylene Glycol-Propylene (Systane) 1 Florence Florence 1 DROPS OPB BID, #30 ML 5 Refills Potassium Chloride (Potassium Chloride Er) 10 Meq Tab 1 TAB PO DAILY for 90 Days, #90 TAB 1 Refill Pregabalin (Lyrica) 50 Mg Cap 50 MG PO BID, CAP Ropinirole (Requip) 1 Mg Tab 1 MG PO HS, TAB Sennosides (Senexon) 8.6 Mg Tab 1 TAB PO BID Sertraline (Zoloft) 100 Mg Tab 2 TABS PO HS, TAB Sodium Phosphate/Biphosphate (Fleet Enema) Catherine 1 EA GA UD PRN for Constipation, BTL GIVE 1 APPLICATION EVERY 72 HOURS PRN Tiotropium [place] (Spiriva Handihaler) 30 Puff/540 Mcg Aerp 1 CAP INH DAILY, INHALER Tramadol (Ultram) 50 Mg Tab 25 MG PO Q8H PRN for Pain, TAB Trazodone Hcl (Trazodone) 100 Mg Tab 100 MG PO HS, TAB [Proair] () 2 PUFF INJ Q6 PRN for SOB/Wheezing [Tafluprost] () 1 DROP OPB QPM Discontinued Medications: Rosuvastatin Calcium (Crestor) 40 Mg Tab 40 MG PO ON HOLD, TAB Discharge Exam Review of Systems: Constitutional: No fever, No chills, No sweats, No weakness, No fatigue Respiratory: + cough, + shortness of breath (on exertion ), No sputum, No hemoptysis Cardiovascular: No chest pain, No edema, No palpitations Abdomen: No pain, No nausea, No vomiting, No diarrhea, No constipation Musculoskeletal: No joint pain, No muscle pain, No swelling, No calf pain Genitourinary - Female: No dysuria, No hematuria Neurologic: No weakness, No numbness/tingling Psychiatric: No depression symptoms, No anxiety Hematologic / Lymphatic: No abnormal bleeding/bruising Integumentary: No rash, No itch, No new/changing skin lesions Physical Exam: General Appearance: no apparent distress, + obese Eyes: normal inspection, PERRL ENT: hearing grossly normal Neck: supple Respiratory/Chest: no respiratory distress, no accessory muscle use, + decreased breath sounds (bilateral lung bases ), + wheezing (slight expiratory wheeze) Cardiovascular: regular rate, rhythm Abdomen / GI: normal bowel sounds, non tender, soft Extremities: no calf tenderness, no pedal edema Neurologic/Psychiatric: alert, normal mood/affect, oriented x 3 Skin: normal color, warm/dry, no rash Hospital Course Admission H&P: This patient presents with increasing shortness of breath, one day prior to admission she aspirated one of her many oral medications. She states this caused coughing fit and she eventually produced the capsule, later that evening she coughed up a gelatinous orange material. She had a waxing and waning night as far shortness of breath coughing and sleep, she presented to the ER where she is found to be hypoxic on room air, has a prolonged expiratory phase of breathing, wheezing, and generally ill feeling. Her hypoxia corrects easily with oxygen in the ER. Recently she had a fall and sustained a contusion to her right knee this was x-rayed without fracture there is a intact joint replacement. Recently she has also had increasing swelling and weeping of fluid from her bilateral lower legs, she typically does take Lasix and has been compliant, however there are now some open areas to her distal right leg that are erythematous and concerning for infection. Physical Exam Vital Signs Date Time Temp Pulse Resp B/P (MAP) Pulse Ox O2 Delivery O2 Flow Rate FiO2 08/18/16 17:57 66 22 157/90 92 Nasal Cannula 3.0 08/18/16 16:37 73 16 143/70 92 Nasal Cannula 3.0 08/18/16 15:38 37.8 80 22 127/75 87 Room Air 08/18/16 15:38 92 Nasal Cannula 2.0 08/18/16 15:38 92 Nasal Cannula 2.0 08/18/16 15:38 87 Room Air 08/18/16 15:34 81 General Appearance: + moderate distress, + obese Head: normocephalic, atraumatic Eyes: PERRL, EOMI ENT: hearing grossly normal, pharynx normal (I do not see any thrush currently) Neck: supple, no JVD, trachea midline Respiratory/Chest: + decreased breath sounds, + accessory muscle use, + wheezing Cardiovascular: regular rate, rhythm, + systolic murmur Abdomen/GI: normal bowel sounds, non tender, soft Back: no CVA tenderness, no muscle spasm Extremities/Musculoskelatal: + pedal edema, + swelling, + pertinent finding ( changes of chronic venous stasis) Neurologic/Psych: alert, oriented x 3 Skin: + rash, + pertinent finding (open areas to right leg approximately 2 cm lateral distal right) Acute on chronic respiratory failure w/ exacerbation likely secondary to pill aspiration- IMPROVING: - Admit to med/surg - O2 protocol, wean as tolerated- patient wears 2L nocturnal O2 supplement -- Discussed w/ nursing staff- off daytime O2 saturating at 91% - BCx- NGTD - Continue DuoNeb QID increased to q4 hrs and Formoterol BID -- Resume home inhalers at discharge - IV Solu Medrol 40 mg BID- decreased to daily on 08/21- begin 40 mg PO Prednisone on 08/23 -- Prednisone taper at discharge - Ongoing dysphagia- follows w/ Dr. Hutchinson closely and states she follows recommended diet- she is scheduled to have video swallow outpatient Recurrent leukocytosis, likely secondary to IV steroid: Follow CBC Lower extremity cellulitis- IMPROVING: - Continue Cipro 500 mg daily x7 days (last day of treatment 08/25) - Wound care consulted UTI- pseudomonas aeruginosa: Treating w/ Cipro as above Thrush: - Continue Diflucan, Peridex -- Patient is unsure when this medication is to be completed or when she started treatment- discussed continuing at discharge and following up with PCP. Cor pulmonale/edema- ECHO in Jan 2016 w/ preserved EF: - Treated w/ IV Lasix 20 mg daily 08/18- 08/22- resume Lasix PO 20 mg daily on 08/23 - Rodriguez placed to monitor I&Os- good negative balance and UO- removed on 08/22 - Continue Coreg 12.5 mg BID, ASA 81 mg daily HTN- ACCEPTABLE pressures: Losartan 50 mg daily CKD stage III-IV, baseline Cr. 1.50- STABLE Hypothyroidism: Continue Synthroid 150 mcg daily Dyslipidemia: - Crestor 40 mg HS held due to thrush treatment -- Resume once OK by PCP Depression: Continue Sertraline 200 mg HS, Trazodone 100 mg HS RLS: Continue Ropinirole 1 mg HS Neuropathy: Continue Lyrica 50 mg BID GERD: Protonix 40 mg daily GI Prophylaxis: Protonix, Maalox PRN, IV Zofran PRN, Colace and/or Milk of Mag PRN DVT prophylaxis: Heparin 5000 units SQ q12 hrs Code Status: LEVEL I, FULL [facility] Total Time Spent: Greater than 30 minutes This includes examination of the patient, discharge planning, medication reconciliation, and communication with other providers. Discharge Instructions Please refer to the electronic Patient Visit Report (Discharge Instructions) for additional information. Follow-Up Please follow-up with your PCP within 5-7 days Please follow-up/keep all of your subspecialty appointments Additional Copies To Napoleon Hi M.D.
--- NOTE | 2016-08-23 10:26 | Discharge Instructions ---
Discharge Instructions Date of Service Aug 23, 2016. Admission Reason for Admission: Acute And Chronic Respiratory Failure With Hypoxia Discharge Discharge Diagnosis / Problem: Acute on chronic respiratory failure secondary to pill aspiration Discharge Goals Goal(s): Decrease discomfort, Improve function, Increase independence, Improve disease control, Learn about illness, Diagnostic testing, Therapeutic intervention, Prevent Disease Progression Activity Recommendations Activity Limitations: resume your previous activity . Instructions / Follow-Up Instructions / Follow-Up New medications: 1. Ciprofloxacin 500 mg by mouth once daily until prescription is complete- BEGIN ON 08/23 This is antibiotic used to treat your UTI and leg wound 2. Prednisone taper- 40 mg by mouth by 3 days (08/24, 08/25, 08/26), then 30 mg by mouth x3 days (08/27, 08/28, 08/29), then 20 mg by mouth x3 days (08/30, 08/31, 09/01) , then 10 mg by mouth x2 days (09/02, 09/03), the 5 mg by mouth x2 days (09/04, ) We discuses your ongoing thrush treatment and holding your statin medication- you are unsure of when you started treatment, but don't think it is to be finished yet. Continue with the thrush treatment and holding statin at this time until you follow-up with your PCP. Resume all other regular home medications as prescribed. Keep leg wound dry, clean, and in clean dressing until fully heals. Be sure to show wound to PCP at follow-up Please follow-up with your PCP within 5-7 days Please follow-up/keep all of your subspecialty appointments Current Hospital Diet Patient's current hospital diet: Low Sodium Diet (2gm Na) Discharge Diet Recommended Diet: Low Sodium Diet (2gm Na) Procedures Procedures Performed: Chest x-ray Knee x-ray Pending Studies Studies pending at discharge: no Laboratory Results Last 24 Hours Test 08/23/16 07:26 White Blood Count 10.02 K/uL Red Blood Count 4.34 M/uL Hemoglobin 12.8 g/dL Hematocrit 41.4 % Mean Corpuscular Volume 95.4 fL Mean Corpuscular Hemoglobin 29.5 pg Mean Corpuscular Hemoglobin Concent 30.9 g/dl RDW Standard Deviation 56.6 fL RDW Coefficient of Variation 16.0 % Platelet Count 287 K/uL Mean Platelet Volume 10.6 fL Sodium Level 143 mmol/L Potassium Level 3.6 mmol/L Chloride Level 105 mmol/L Carbon Dioxide Level 31 mmol/L Anion Gap 7.0 mmol/L Blood Urea Nitrogen 57 mg/dl Creatinine 1.80 mg/dl Est Creatinine Clear Calc Drug Dose 28.3 ml/min Estimated GFR () 28.6 Estimated GFR (Non- 24.7 BUN/Creatinine Ratio 31.8 Random Glucose 112 mg/dl Calcium Level 9.7 mg/dl Magnesium Level 2.3 mg/dl Medical Emergencies . Who to Call and When: Medical Emergencies: If at any time you feel your situation is an emergency, please call 911 immediately. . Non-Emergent Contact Non-Emergency issues call your: Primary Care Provider . . "Provider Documentation" section prepared by Dalila Flood. . VTE Core Measure Inpt VTE Proph given/why not?: Unfractionated heparin SQ
[2016-08-23 15:04] VITALS: PULSE 65; O2SAT 91
[2016-08-23] MEDS: CIPROFLOXACIN 500 MG TAB PO SCH (15:59)
== END 2016-08-23 16:08 | disposition home or self-care (01) | DRG 189 ==
LOC: EDBD 15:21 → C.EDA 17:06 → C.MS4W 18:11 → ENRESERV 18:17
PROVIDERS: ADMIT Internal Medicine; ATTEND Hospitalist
DX: J96.21 Acute and chronic respiratory failure with hypoxia (principal); J44.9 Chronic obstructive pulmonary disease, unspecified; L03.115 Cellulitis of right lower limb; N39.0 Urinary tract infection, site not specified; B37.0 Candidal stomatitis; N18.4 Chronic kidney disease, stage 4 (severe); J18.9 Pneumonia, unspecified organism; I12.9 Hypertensive chronic kidney disease with stage 1 through stage 4 chronic kidney disease, or unspecified chronic kidney disease; Z95.0 Presence of cardiac pacemaker; F32.9 Major depressive disorder, single episode, unspecified; E78.5 Hyperlipidemia, unspecified; Z98.1 Arthrodesis status; Z96.649 Presence of unspecified artificial hip joint; K21.9 Gastro-esophageal reflux disease without esophagitis; T17.908A Unspecified foreign body in respiratory tract, part unspecified causing other injury, initial encounter; E03.9 Hypothyroidism, unspecified; B96.5 Pseudomonas (aeruginosa) (mallei) (pseudomallei) as the cause of diseases classified elsewhere; I87.8 Other specified disorders of veins; Y92.89 Other specified places as the place of occurrence of the external cause; W19.XXXA Unspecified fall, initial encounter; S80.01XA Contusion of right knee, initial encounter; G62.9 Polyneuropathy, unspecified

== ENCOUNTER → 2016-08-29 | Outpatient (CLI) | payer OTHER, MEDICARE ==
[~2016-08-29] MED LIST changes: +ALBINS/ INH; -ALBU0.08 INH; -ALBU1AER9 INH; -ASPEC81 PO; +ASPI81TA21 PO; +CPR500 PO; -CRS20 PO; -DEXT30TA7 PO; +DIPH1TAB PO; -DIPH50TA10 PO; +FEXO3TAB PO; +FLUC200T4 PO; +FURO-85 PO; -GUAI100S16 PO; +GUAI100S75 PO; +HYDR2.5L TOP; +LOSA50TA54 PO; -LOSA50TA6 PO; +LYR/50 PO; -LYR50 PO; +NEOMOIN76 TOP; -POLYSOL4 OP; +POLYSOL4 OPB; +POTA-74 PO; -POTA10CA28 PO; +PRED10TA PO; +PROAIR INJ; +TAFLUPROST OPB
--- NOTE | 2016-08-29 14:31 | DIAGNOSTIC IMAGING REPORT ---
VIDEO SWALLOW HISTORY: 78-year-old female presents with aspiration DYSPHAGIA, ASPIRATION TECHNIQUE: Video fluoroscopic evaluation of swallowing was performed in the AP and lateral projections by the speech pathology staff. The patient is fed nectar-thick and thin liquid barium, a barium coated wafer, and barium pudding. FLUOROSCOPY TIME: 3.5 minutes. COMPARISON STUDY: Chest radiograph 08/20/2016. FINDINGS: Penetration was present with thin liquids. Esophageal dysmotility was seen with pudding consistency. Swallowing function is otherwise within normal limits. Left pectoral pacer wires incidentally noted over the upper chest. IMPRESSION: 1. Penetration with thin liquids. 2. Esophageal dysmotility with pudding consistency. 3. Please see the speech pathologist report for detailed findings and recommendations. Electronically signed by: Dk Romero M.D. 08/29/2016 2:29 PM Dictated Date/Time: 08/29/2016 2:24 PM
--- NOTE | 2016-08-29 15:30 | SWALLOWING EVALUATION ---
HISTORY: This 86 year old woman, from [facility], was referred for a video swallow study at [facility] in order to rule out aspiration and identify the safest consistencies for optimal oral intake. The patient reports swallowing difficulty with both solids and liquids, in that they become "stuck" in her throat and her esophagus. She also reported at times she will cough up and expectorate food and water. She feels water is "the hardest to go down". PMH is significant for: COPD, CKD Stage 3, spinal stenosis, GERD, and falls. Current diet is mechanical soft, slippery. The patient participated in a Barium Swallow study in February of 2013, with findings suggestive of esophageal dysmotility. She also participated in 2 previous video swallow studies (April of 2015 and November of 2015-please refer to full reports for details) which recommended mechanical soft, "slippery" diets due to esophageal dysmotility. No aspiration was identified during any of these testing procedures. PROCEDURE: The patient was seen in the Radiology Department of [facility] for the VFSS. Cursory examination of the oral cavity revealed natural dentition in fair condition. Movement of the articulators was wnl. The patient was seated on a stool and was viewed in both the Anterior-Posterior (A-P) and Lateral planes. Volitional phonation exercises completed in the A-P plane revealed bilateral vocal fold movement and vocal intensity within functional limits. In the lateral plane, the patient was given the following boluses: 1 tsp. thin liquid barium x 2, single swallow thin liquid barium self-presented from a cup, sequential swallows of thin liquid barium self-presented from a cup, 1 tsp. nectar-thick liquid barium, single swallow nectar-thick liquid barium self-presented from a cup, 1 tsp. barium pudding, and 1 club cracker coated in barium pudding. The patient was then repositioned into the A-P plane and given the following boluses: 1 tsp. nectar thick barium and 1 tsp. barium pudding. RESULTS: Oral Stage: Lip closure was adequate. The patient was able to maintain a cohesive liquid bolus upon command without lateral or posterior escape. Mastication was mildly slow. Lingual motion for bolus transport was also noted to be slow. There was retention lining the tongue and palate after the swallow. The initiation of the pharyngeal swallow was delayed and triggered when the bolus head reached pyriforms. Pharyngeal Stage: Soft palate elevation was complete. Laryngeal elevation revealed partial superior movement of the thyroid cartilage and partial approximation of the arytenoids to the epiglottic base. Anterior hyoid excursion was partially reduced. Epiglottic deflection was complete. Laryngeal vestibular closure was incomplete, as evidenced by a narrow column of contrast being located in the vestibule at the height of the swallow. The pharyngeal stripping wave was present and complete. There was complete distention and duration of the opening to the pharyngoesophageal segment (PES). Tongue base retraction was reduced, with a trace column of contrast located between the tongue base and pharyngeal wall during the swallow. There was mild retention located along the tongue base and in the valleculae after the swallow. The patient presented with several episodes of laryngeal penetration of thin liquid during the study, generally when completing the liquid bolus hold task with teaspoon sips. This is attributed to the patient's delayed swallow reflex. There were no other episodes of laryngeal penetration for the study. There was no aspiration of any consistency. Retention that remained in the pharynx after the swallow cleared with a second swallow that was independently generated. The patient was noted to have a dry harsh cough at times during the study, but this was not related to aspiration. Esophageal stage: There was esophageal retention throughout the mid and distal esophagus. A liquid wash assisted to clear some of this retention, but not fully. In the lateral view, there was evidence of a prominent cricopharyngeus. SUMMARY/RECOMMENDATIONS: This patient presents with mild katelyn-pharyngeal dysphagia. She also has s/s of esophageal dysfunction. The following is recommended: 1. Mechanical soft diet, slippery, and thin liquids. 2. Aspiration and GERD (reflux) precautions. Fully upright while eating and 30 minutes after meals. Head of the bed should be elevated to 30 degrees at all times to include while asleep. 3. Safe swallow strategies: Avoid foods that are dry, thick, pasty, or doughy. Small frequent meals. Rest breaks while eating. Alternate solids and liquids. 4. Follow up speech therapy for further education and carryover of diet and safe swallow strategies. A summary of the results and recommendations was discussed with the patient and her son-in-law (with her permission) immediately following the study with verbal understanding. The patient was also provided with verbal and written information regarding a "slippery" diet for improved comfort while eating. She was very aware of this diet from previous studies, as was the patient's family. A summary of the results and recommendations were also provided to the patient on a video swallow study worksheet as no consultation record was provide by the facility. Thank you for referral of this patient. Please contact me at if any additional information is needed.
== END | disposition home or self-care (01) ==
LOC: C.RAD 13:16
PROVIDERS: ATTEND Internal Medicine
DX: R13.10 Dysphagia, unspecified (principal); R05 Cough; Z87.01 Personal history of pneumonia (recurrent); K22.4 Dyskinesia of esophagus

== ENCOUNTER → 2016-09-19 | Outpatient (CLI) | payer OTHER, MEDICARE ==
[~2016-09-19] MED LIST changes: -PRED10TA PO
--- NOTE | 2016-10-10 07:21 | CODING QUERY MEDICAL NECESSITY ---
SUPPORTING DIAGNOSIS NEEDED Dr. Hi, A supporting diagnosis is required for the test/procedure performed on this patient in order for us to be reimbursed by the patient's insurance. Please provide a supporting diagnosis for the following test/procedure listed below next to the test name along with your signature. *If there is no additional diagnosis for this patient that would support the following test/procedure please document that below next to the test/procedure. Test(s)/Procedure(s) that require a supporting diagnosis: * ([id number]) IMMUNOGLOBULIN E DIAGNOSIS: DATE OF SERVICE: 09/19/16 Provider Signature: Date: Thank you Manny Mckeon [facility] Information Management Once completed, please kindly fax back to [phone] For questions please call [phone]
== END | disposition home or self-care (01) ==
LOC: C.LABFOXDH 09:36
PROVIDERS: ATTEND Internal Medicine
DX: R06.2 Wheezing (principal)

== ENCOUNTER → 2016-11-10 | Outpatient (CLI) | payer OTHER, MEDICARE ==
--- NOTE | 2016-11-10 12:22 | DIAGNOSTIC IMAGING REPORT ---
CHEST 2 VIEWS ROUTINE CLINICAL HISTORY: PNEUMONIA COMPARISON STUDY: [id number] FINDINGS: The heart is mildly enlarged. There is a left subclavian dual-chamber central venous pacemaker. There is no failure. There is no focal pulmonary consolidation. There is minor left basilar atelectatic change.[ IMPRESSION: Increased left basal markings, likely atelectatic. No evidence of lobar consolidation. No evidence of failure. Electronically signed by: Ha Regalado M.D. 11/10/2016 12:20 PM Dictated Date/Time: 11/10/2016 12:20 PM
== END | disposition home or self-care (01) ==
LOC: C.RAD1850 12:05
PROVIDERS: ATTEND Physician Assistant
DX: J18.9 Pneumonia, unspecified organism (principal)

== ENCOUNTER → 2017-01-29 | Outpatient (CLI) | payer OTHER, MEDICARE ==
[~2017-01-29] MED LIST changes: -DIPH1TAB PO; +DIPH1TAB87 PO
[2017-01-29 09:40] LABS: BLOOD UREA NITROGEN 42 mg/dl (7-18); BUN/CREATININE RATIO 20.8 (10-20); CALCIUM 8.4 mg/dl (8.5-10.1); CARBON DIOXIDE 32 mmol/L (21-32); CHLORIDE 111 mmol/L (98-107); CREATININE 2.01 mg/dl (0.60-1.20); GLUCOSE 103 mg/dl (70-99); POTASSIUM 3.8 mmol/L (3.5-5.1); SODIUM 148 mmol/L (136-145)
== END | disposition home or self-care (01) ==
LOC: C.LABFOXDH 08:42
PROVIDERS: ATTEND Internal Medicine
DX: I50.9 Heart failure, unspecified (principal)

== ENCOUNTER → 2017-02-06 | Outpatient (CLI) | payer OTHER, MEDICARE ==
[2017-02-06 10:04] LABS: BLOOD UREA NITROGEN 37 mg/dl (7-18); BUN/CREATININE RATIO 18.6 (10-20); CALCIUM 8.9 mg/dl (8.5-10.1); CARBON DIOXIDE 33 mmol/L (21-32); CHLORIDE 110 mmol/L (98-107); CREATININE 1.99 mg/dl (0.60-1.20); GLUCOSE 100 mg/dl (70-99); POTASSIUM 4.4 mmol/L (3.5-5.1); SODIUM 147 mmol/L (136-145)
== END | disposition home or self-care (01) ==
LOC: C.LABFOXDH 09:11
PROVIDERS: ATTEND Internal Medicine Hospice and Palliative Medicine
DX: I50.9 Heart failure, unspecified (principal)

== ENCOUNTER → 2017-02-14 | Outpatient (CLI) | payer OTHER, MEDICARE ==
[~2017-02-14] MED LIST changes: +ALBU18002 INH; +ARFO15NE INH; +ASPI-319 PO; -ASPI81TA21 PO; +GUAI400T44 PO; +MULT60CA PO; +NEOM-25 TOP; +OXGN; +PLMINSR5 INH
--- NOTE | 2017-02-14 09:55 | DIAGNOSTIC IMAGING REPORT ---
CHEST 2 VIEWS ROUTINE CLINICAL HISTORY: 87 years-old Female presenting with R06.02 Shortness of [id number]. TECHNIQUE: PA and lateral views of the chest were obtained. COMPARISON: 11/10/2016. FINDINGS: Left subclavian pacer with leads to the right atrial and right ventricular apex. Atherosclerosis of aortic arch. Cardiac silhouette remains enlarged. Hazy bibasilar opacities. No large pleural effusion. No pneumothorax. Slightly exaggerated thoracic kyphosis. Partially visualized posterior lumbar fusion hardware. Upper abdomen normal. IMPRESSION: 1. Hazy bibasilar opacities could represent atelectasis, aspiration, or mild pulmonary edema. 2. Cardiomegaly. Electronically signed by: Maximus Sharif M.D. 02/14/2017 9:53 AM Dictated Date/Time: 02/14/2017 9:52 AM
== END | disposition home or self-care (01) ==
LOC: C.RAD1850 09:40
PROVIDERS: ATTEND Physician Assistant
DX: R06.02 Shortness of breath (principal); I51.7 Cardiomegaly

== ENCOUNTER → 2017-04-02 | Outpatient (CLI) | payer OTHER, MEDICARE ==
[~2017-04-02] MED LIST changes: -ALBINS/ INH; -ASPI-319 PO; +ASPI81TA21 PO; -CPR500 PO; -DIPH1TAB87 PO; -FLUC200T4 PO; -MULT-190 PO; -NEOMOIN76 TOP; -PROAIR INJ; -SPRIN/30 INH; -SYMIN160 INH
[2017-04-02 09:02] LABS: ALBUMIN 2.4 gm/dl (3.4-5.0); ALT/SGPT 14 U/L (12-78); AST/SGOT 12 U/L (15-37); BLOOD UREA NITROGEN 23 mg/dl (7-18); CALCIUM 8.6 mg/dl (8.5-10.1); CARBON DIOXIDE 32 mmol/L (21-32); CREATININE 1.71 mg/dl (0.60-1.20); GLUCOSE 105 mg/dl (70-99); POTASSIUM 4.4 mmol/L (3.5-5.1); SODIUM 149 mmol/L (136-145)
[2017-04-02 09:13] LABS: ALKALINE PHOSPHATASE 81 U/L (45-117); TOTAL PROTEIN 5.3 gm/dl (6.4-8.2)
[2017-04-02 09:14] LABS: HEMATOCRIT 37.5 % (37-47); HEMOGLOBIN 10.8 g/dL (12.0-16.0); MEAN CELL VOLUME 96.6 fL (80-100); MEAN CORPUSCULAR HEMOGLOBIN 27.8 pg (25-34); MEAN CORPUSCULAR HGB CONC 28.8 g/dl (32-36); MEAN PLATELET VOLUME 11.8 fL (7.4-10.4); PLATELET COUNT 146 K/uL (130-400); RED CELL DISTRIBUTION WIDTH CV 18.7 % (11.5-14.5); RED CELL DISTRIBUTION WIDTH SD 65.4 fL (36.4-46.3); WHITE BLOOD COUNT 5.87 K/uL (4.8-10.8)
== END ==
LOC: C.LABFOXAE 08:35
PROVIDERS: ATTEND Internal Medicine
DX: E03.9 Hypothyroidism, unspecified (principal); I10 Essential (primary) hypertension

== ENCOUNTER → 2017-04-04 | Day surgery (SDC) | payer OTHER, MEDICARE ==
[2017-03-26 13:16] VITALS: Ht 171.5 cm; Wt 115.9 kg
--- NOTE | 2017-03-26 14:03 | PAT Medication Instructions ---
Service Date Mar 26, 2017. Current Home Medication List Acetaminophen (Tylenol), 650 MG PO Q4 PRN for Pain or Fever Albuterol Sulfate (Proair Respiclick), 2 PUFFS INH Q6H PRN for SOB/Wheezing Arformoterol Tartrate (Brovana), 15 MCG INH BID Aspirin Enteric Coated (Ecotrin Or Generic), 81 MG PO DAILY Bisacodyl (Dulcolax), 1 SUPP [place] Q48HR PRN for Constipation Budesonide (Pulmicort Respules 0.5MG/2ML), 2 ML INH BID Calcium Carbonate (Tums), 1 TAB PO Q4H PRN for Indigestion Carvedilol (Coreg), 12.5 MG PO BID Coenzyme Q10 (Ubidecarenone) (Co Q10), 200 MG PO QAM Fexofenadine HCl (Mucinex Allergy), 1 TAB PO BID Furosemide (Lasix), 20 MG PO QAM Guaifenesin (Siltussin Sa), 10 ML PO Q6 PRN for Cough Guaifenesin (Guaifenesin), 1 TAB PO Q4H PRN for THICK MUCOUS Home O2 Therapy (Oxygen), 2 LITERS NA CONTINOUS Hydrocortisone (Topical) (Hydrocortisone), 1 APPLN TOP BID Levothyroxine Sodium (Levothyroxine Sodium), 1 TAB PO QAM Loperamide Hcl (Loperamide Hcl), 1 TAB PO DIRECTED PRN for Diarrhea Losartan Potassium (Cozaar), 50 MG PO DAILY Magnesium Hydroxide (Milk Of Magnesia), 30 ML PO PRN UD Montelukast Sodium (Singulair), 10 MG PO DAILY Multiple Vitamins W/ Minerals (Preservision Areds 2), 1 CAP PO BID Ouhlfyvl-Eftinuwjpe-Knvpdmaio (Triple Antibiotic), 1 DOSE TOP UD PRN for PRN Nitroglycerin (Nitrostat), 0.4 MG UT PRN Nystatin (Bio-Statin), 1 DOSE EXT DIRECTED PRN for PRN Pantoprazole (Protonix), 40 MG PO QAM Polyethylene Glycol 3350 (Miralax), 8.5 GM PO DAILY PRN for Constipation Polyethylene Glycol-Propylene (Systane), 1 DROPS OPB BID Potassium Chloride (Potassium Chloride Er), 1 TAB PO DAILY Pregabalin (Lyrica), 50 MG PO TID Ropinirole (Requip), 1 MG PO HS Sennosides (Senexon), 1 TAB PO BID Sertraline (Zoloft), 2 TABS PO HS Sodium Phosphate/Biphosphate (Fleet Enema), 1 EA [place] UD PRN for Constipation Tramadol (Ultram), 25 MG PO Q8H PRN for Pain Trazodone Hcl (Trazodone), 100 MG PO HS [Tafluprost], 1 DROP OPB QPM Medication Instructions For Your Scheduled Surgery - Check with surgeon and prescribing physician for instructions (okay to continue as directed from an anesthesia perspective): - Continue as directed: Home O2 Therapy (Oxygen), 2 LITERS NA CONTINOUS - Hold the following medications starting 03/27/17: Coenzyme Q10 (Ubidecarenone) (Co Q10), 200 MG PO QAM - Hold the following medications 24 hours prior to surgery: Ropinirole (Requip), 1 MG PO HS Gnxenzaz-Kbpgmbsahl-Dikdeqjpb (Triple Antibiotic), 1 DOSE TOP UD PRN for PRN Hydrocortisone (Topical) (Hydrocortisone), 1 APPLN TOP BID - Hold the following medications the morning of surgery: Bisacodyl (Dulcolax), 1 SUPP [place] Q48HR PRN for Constipation Calcium Carbonate (Tums), 1 TAB PO Q4H PRN for Indigestion Fexofenadine HCl (Mucinex Allergy), 1 TAB PO BID Furosemide (Lasix), 20 MG PO QAM Guaifenesin (Siltussin Sa), 10 ML PO Q6 PRN for Cough Guaifenesin (Guaifenesin), 1 TAB PO Q4H PRN for THICK MUCOUS Loperamide Hcl (Loperamide Hcl), 1 TAB PO DIRECTED PRN for Diarrhea Losartan Potassium (Cozaar), 50 MG PO DAILY Magnesium Hydroxide (Milk Of Magnesia), 30 ML PO PRN UD Montelukast Sodium (Singulair), 10 MG PO DAILY Multiple Vitamins W/ Minerals (Preservision Areds 2), 1 CAP PO BID Nystatin (Bio-Statin), 1 DOSE EXT DIRECTED PRN for PRN Polyethylene Glycol 3350 (Miralax), 8.5 GM PO DAILY PRN for Constipation Potassium Chloride (Potassium Chloride Er), 1 TAB PO DAILY Sennosides (Senexon), 1 TAB PO BID Sodium Phosphate/Biphosphate (Fleet Enema), 1 EA KY UD PRN for Constipation - Take the following medications the morning of surgery with a sip of water: Tramadol (Ultram), 25 MG PO Q8H PRN for Pain (okay to take up to 4 hours prior to surgery if needed) Acetaminophen (Tylenol), 650 MG PO Q4 PRN for Pain or Fever (okay to take up to 4 hours prior to surgery if needed) Pregabalin (Lyrica), 50 MG PO TID Polyethylene Glycol-Propylene (Systane), 1 DROPS OPB BID Pantoprazole (Protonix), 40 MG PO QAM Nitroglycerin (Nitrostat), 0.4 MG UT PRN (if needed) Levothyroxine Sodium (Levothyroxine Sodium), 1 TAB PO QAM Carvedilol (Coreg), 12.5 MG PO BID Budesonide (Pulmicort Respules 0.5MG/2ML), 2 ML INH BID Arformoterol Tartrate (Brovana), 15 MCG INH BID Albuterol Sulfate (Proair Respiclick), 2 PUFFS INH Q6H PRN for SOB/Wheezing (if needed) If you have any questions please call us at [phone] or [phone] or [phone]
[~2017-04-04] VITALS: Ht 171.5 cm; Wt 115.9 kg
[~2017-04-04] MED LIST changes: +LIDOCAINE HCL 2% 2 ML VIAL (20MG/ML) ONE; +PROPOFOL IV EMULSION 10 MG/ML 20 ML VIAL IV ONE; +SODIUM CHLORIDE 0.9% 500ML 500 ML IV ONE
--- NOTE | 2017-04-04 14:10 | Endo History and Physical ---
History & Physical Date of Service: Apr 04, 2017. Chief Complaint: dysphagia Referring Physician: dysphagia History of Present Illness dysphagia Past Medical History Arthritis, Pacemaker, Asthma, Gastrointestinal Disorder, Glaucoma, Reflux, Hypertension, COPD, Thyroid Disease, Depression, RI Past Surgical History Hx Cardiac Surgery: No Hx Internal Defibrillator: No Hx Pacemaker: Yes (PACEMAKER 2007) Hx Abdominal Surgery: Yes (RENAN) Hx of Implantable Prosthesis: No Hx Post-Op Nausea and Vomiting: No Hx Cancer Surgery: No Hx Thoracic Surgery: No Hx Orthopedic: Yes (LT/RT NELL, LT HIP REVISION, LT/RT TKA, LOWER LUMBAR FUSION AND REVISED) Hx Urinary Tract Surgery: No Family History None Social History Smoking Status: Former Smoker Hx Substance Use: No Hx Alcohol Use: No Allergies Coded Allergies: Nickel (Verified Allergy, Unknown, "LITTLE BEADY BLISTERS", 03/26/17) Morphine (Verified Adverse Reaction, Intermediate, SEVERE GI, 03/26/17) Current Medications Reported Home Medications Medications Dose Route/Sig Max Daily Dose Days Date Category Dose Instructions Oxygen Gas 2 Liters NA CONTINOUS 03/26/17 Reported Triple Antibiotic (Hzrqoboj-Lrauqqlkei-Jgjexcynr) 1 Oin Oin 1 Dose TOP UD PRN 03/26/17 Reported Proair Respiclick (Albuterol Sulfate) 108 Mcg/Act Aer 2 Puffs INH Q6H PRN 03/26/17 Reported Preservision Areds 2 (Multiple Vitamins W/ Minerals) 1 Cap Cap 1 Cap PO BID 03/26/17 Reported Guaifenesin 400 Mg Tab 1 Tab PO Q4H PRN 03/26/17 Reported Pulmicort Respules 0.5MG/2ML (Budesonide) 0.5 Mg/2 Ml Nebu 2 Ml INH BID 03/26/17 Reported Brovana (Arformoterol Tartrate) 15 Mcg/2 Ml Neb 15 Mcg INH BID 03/26/17 Reported Potassium Chloride Er (Potassium Chloride) 10 Meq Tab 1 Tab PO DAILY 08/18/16 Reported [Tafluprost] 1 Drop OPB QPM 08/18/16 Reported Systane (Polyethylene Glycol-Propylene) 1 Florence Florence 1 Drops OPB BID 08/18/16 Reported Siltussin Sa (Guaifenesin) 100 Mg/5 Ml Syp 10 Ml PO Q6 PRN 08/18/16 Reported Mucinex Allergy (Fexofenadine HCl) 180 Mg Tab 1 Tab PO BID 08/18/16 Reported Milk Of Magnesia (Magnesium Hydroxide) 30 Ml Susp 30 Ml PO PRN UD 08/18/16 Reported PRN FOR NO BM, 2 DAYS Lyrica (Pregabalin) 50 Mg Cap 50 Mg PO TID 08/18/16 Reported Cozaar (Losartan Potassium) 50 Mg Tab 50 Mg PO DAILY 08/18/16 Reported Hydrocortisone (Hydrocortisone (Topical)) 2.5 % Lot 1 Appln TOP BID 10 08/18/16 Reported Ecotrin Or Generic (Aspirin) 81 Mg Tab 81 Mg PO DAILY 08/18/16 Reported Tums (Calcium Carbonate) 500 Mg Chew 1 Tab PO Q4H PRN 07/26/16 Reported Trazodone (Trazodone HCl) 100 Mg Tab 100 Mg PO HS 07/26/16 Reported Ultram (Tramadol HCl) 50 Mg Tab 25 Mg PO Q8H PRN 07/26/16 Reported Requip (Ropinirole HCl) 1 Mg Tab 1 Mg PO HS 07/26/16 Reported Miralax (Polyethylene Glycol 3350) 1 Pow Pow 8.5 Gm PO DAILY PRN 07/26/16 Reported Protonix (Pantoprazole Sodium) 40 Mg Tab 40 Mg PO QAM 07/26/16 Reported Bio-Statin (Nystatin) 56.7 Gm Powd 1 Dose EXT DIRECTED PRN 07/26/16 Reported Nitrostat (Nitroglycerin) 0.4 Mg Tab 0.4 Mg UT PRN 07/26/16 Reported Loperamide Hcl 2 Mg Tab 1 Tab PO DIRECTED PRN 07/26/16 Reported Fleet Enema (Sodium Phosphate/Biphosphate) Catherine 1 Ea [place] UD PRN 07/26/16 Reported GIVE 1 APPLICATION EVERY 72 HOURS PRN Dulcolax (Bisacodyl) 10 Mg Sup 1 Supp AR Q48HR PRN 07/26/16 Reported Singulair (Montelukast Sodium) 10 Mg Tab 10 Mg PO DAILY 02/10/16 Reported Co Q10 (Coenzyme Q10 (Ubidecarenone)) 200 Mg Cap 200 Mg PO QAM 04/01/15 Reported Levothyroxine Sodium 150 Mcg Tab 1 Tab PO QAM 04/01/15 Reported Zoloft (Sertraline HCl) 100 Mg Tab 2 Tabs PO HS 04/01/15 Reported Tylenol (Acetaminophen) 325 Mg Tab 650 Mg PO Q4 PRN 10/22/13 Reported MAX APAP = 3GM/24HRS Senexon (Sennosides) 8.6 Mg Tab 1 Tab PO BID 10/22/13 Reported Coreg (Carvedilol) 12.5 Mg Tab 12.5 Mg PO BID 02/28/13 Reported Vital Signs Weight (Kilograms): 115.91 Height (Feet): 5 Height (Inches): 7.5 Physical Exam General Appearance: WD/WN, no apparent distress Respiratory/Chest: Auscultation: breath sounds normal Cardiovascular: Heart Auscultation: RRR Abdomen: Bowel Sounds: normal Inspection & Palpation: soft, non-distended, no tenderness, guarding & rebound Assessment and Plan 1) EGD for dysphagia
--- NOTE | 2017-04-04 14:49 | Discharge Instructions ---
Endoscopy Patient Instructions Date / Procedure(s) Performed Apr 04, 2017. EGD Allergy Information Coded Allergies: Nickel (Verified Allergy, Unknown, "LITTLE BEADY BLISTERS", 03/26/17) Morphine (Verified Adverse Reaction, Intermediate, SEVERE GI, 03/26/17) Discharge Date / Findings Apr 04, 2017. Small HH EGD dilated to 60 Fr Savary Medication Instructions Stopped Medication(s): took ASA yesterday Restart Stopped Medication(s): Reported Home Medications Medications Dose Route/Sig Max Daily Dose Days Date Category Dose Instructions Oxygen Gas 2 Liters NA CONTINOUS 03/26/17 Reported Triple Antibiotic (Zfmnqnsv-Kodmndnwif-Bsmghpyqi) 1 Oin Oin 1 Dose TOP UD PRN 03/26/17 Reported Proair Respiclick (Albuterol Sulfate) 108 Mcg/Act Aer 2 Puffs INH Q6H PRN 03/26/17 Reported Preservision Areds 2 (Multiple Vitamins W/ Minerals) 1 Cap Cap 1 Cap PO BID 03/26/17 Reported Guaifenesin 400 Mg Tab 1 Tab PO Q4H PRN 03/26/17 Reported Pulmicort Respules 0.5MG/2ML (Budesonide) 0.5 Mg/2 Ml Nebu 2 Ml INH BID 03/26/17 Reported Brovana (Arformoterol Tartrate) 15 Mcg/2 Ml Neb 15 Mcg INH BID 03/26/17 Reported Potassium Chloride Er (Potassium Chloride) 10 Meq Tab 1 Tab PO DAILY 08/18/16 Reported [Tafluprost] 1 Drop OPB QPM 08/18/16 Reported Systane (Polyethylene Glycol-Propylene) 1 Florence Florence 1 Drops OPB BID 08/18/16 Reported Siltussin Sa (Guaifenesin) 100 Mg/5 Ml Syp 10 Ml PO Q6 PRN 08/18/16 Reported Mucinex Allergy (Fexofenadine HCl) 180 Mg Tab 1 Tab PO BID 08/18/16 Reported Milk Of Magnesia (Magnesium Hydroxide) 30 Ml Susp 30 Ml PO PRN UD 08/18/16 Reported PRN FOR NO BM, 2 DAYS Lyrica (Pregabalin) 50 Mg Cap 50 Mg PO TID 08/18/16 Reported Cozaar (Losartan Potassium) 50 Mg Tab 50 Mg PO DAILY 08/18/16 Reported Hydrocortisone (Hydrocortisone (Topical)) 2.5 % Lot 1 Appln TOP BID 10 08/18/16 Reported Ecotrin Or Generic (Aspirin) 81 Mg Tab 81 Mg PO DAILY 08/18/16 Reported Tums (Calcium Carbonate) 500 Mg Chew 1 Tab PO Q4H PRN 07/26/16 Reported Trazodone (Trazodone HCl) 100 Mg Tab 100 Mg PO HS 07/26/16 Reported Ultram (Tramadol HCl) 50 Mg Tab 25 Mg PO Q8H PRN 07/26/16 Reported Requip (Ropinirole HCl) 1 Mg Tab 1 Mg PO HS 07/26/16 Reported Miralax (Polyethylene Glycol 3350) 1 Pow Pow 8.5 Gm PO DAILY PRN 07/26/16 Reported Protonix (Pantoprazole Sodium) 40 Mg Tab 40 Mg PO QAM 07/26/16 Reported Bio-Statin (Nystatin) 56.7 Gm Powd 1 Dose EXT DIRECTED PRN 07/26/16 Reported Nitrostat (Nitroglycerin) 0.4 Mg Tab 0.4 Mg UT PRN 07/26/16 Reported Loperamide Hcl 2 Mg Tab 1 Tab PO DIRECTED PRN 07/26/16 Reported Fleet Enema (Sodium Phosphate/Biphosphate) Catherine 1 Ea [place] UD PRN 07/26/16 Reported GIVE 1 APPLICATION EVERY 72 HOURS PRN Dulcolax (Bisacodyl) 10 Mg Sup 1 Supp WA Q48HR PRN 07/26/16 Reported Singulair (Montelukast Sodium) 10 Mg Tab 10 Mg PO DAILY 02/10/16 Reported Co Q10 (Coenzyme Q10 (Ubidecarenone)) 200 Mg Cap 200 Mg PO QAM 04/01/15 Reported Levothyroxine Sodium 150 Mcg Tab 1 Tab PO QAM 04/01/15 Reported Zoloft (Sertraline HCl) 100 Mg Tab 2 Tabs PO HS 04/01/15 Reported Tylenol (Acetaminophen) 325 Mg Tab 650 Mg PO Q4 PRN 10/22/13 Reported MAX APAP = 3GM/24HRS Senexon (Sennosides) 8.6 Mg Tab 1 Tab PO BID 10/22/13 Reported Coreg (Carvedilol) 12.5 Mg Tab 12.5 Mg PO BID 02/28/13 Reported Reported Home Medications Medications Dose Route/Sig Max Daily Dose Days Date Category Dose Instructions Oxygen Gas 2 Liters NA CONTINOUS 03/26/17 Reported Triple Antibiotic (Hoivbmbn-Hxoeqwzlmp-Zqnjyebhd) 1 Oin Oin 1 Dose TOP UD PRN 03/26/17 Reported Proair Respiclick (Albuterol Sulfate) 108 Mcg/Act Aer 2 Puffs INH Q6H PRN 03/26/17 Reported Preservision Areds 2 (Multiple Vitamins W/ Minerals) 1 Cap Cap 1 Cap PO BID 03/26/17 Reported Guaifenesin 400 Mg Tab 1 Tab PO Q4H PRN 03/26/17 Reported Pulmicort Respules 0.5MG/2ML (Budesonide) 0.5 Mg/2 Ml Nebu 2 Ml INH BID 03/26/17 Reported Brovana (Arformoterol Tartrate) 15 Mcg/2 Ml Neb 15 Mcg INH BID 03/26/17 Reported Potassium Chloride Er (Potassium Chloride) 10 Meq Tab 1 Tab PO DAILY 08/18/16 Reported [Tafluprost] 1 Drop OPB QPM 08/18/16 Reported Systane (Polyethylene Glycol-Propylene) 1 Florence Florence 1 Drops OPB BID 08/18/16 Reported Siltussin Sa (Guaifenesin) 100 Mg/5 Ml Syp 10 Ml PO Q6 PRN 08/18/16 Reported Mucinex Allergy (Fexofenadine HCl) 180 Mg Tab 1 Tab PO BID 08/18/16 Reported Milk Of Magnesia (Magnesium Hydroxide) 30 Ml Susp 30 Ml PO PRN UD 08/18/16 Reported PRN FOR NO BM, 2 DAYS Lyrica (Pregabalin) 50 Mg Cap 50 Mg PO TID 08/18/16 Reported Cozaar (Losartan Potassium) 50 Mg Tab 50 Mg PO DAILY 08/18/16 Reported Hydrocortisone (Hydrocortisone (Topical)) 2.5 % Lot 1 Appln TOP BID 10 08/18/16 Reported Ecotrin Or Generic (Aspirin) 81 Mg Tab 81 Mg PO DAILY 08/18/16 Reported Tums (Calcium Carbonate) 500 Mg Chew 1 Tab PO Q4H PRN 07/26/16 Reported Trazodone (Trazodone HCl) 100 Mg Tab 100 Mg PO HS 07/26/16 Reported Ultram (Tramadol HCl) 50 Mg Tab 25 Mg PO Q8H PRN 07/26/16 Reported Requip (Ropinirole HCl) 1 Mg Tab 1 Mg PO HS 07/26/16 Reported Miralax (Polyethylene Glycol 3350) 1 Pow Pow 8.5 Gm PO DAILY PRN 07/26/16 Reported Protonix (Pantoprazole Sodium) 40 Mg Tab 40 Mg PO QAM 07/26/16 Reported Bio-Statin (Nystatin) 56.7 Gm Powd 1 Dose EXT DIRECTED PRN 07/26/16 Reported Nitrostat (Nitroglycerin) 0.4 Mg Tab 0.4 Mg UT PRN 07/26/16 Reported Loperamide Hcl 2 Mg Tab 1 Tab PO DIRECTED PRN 07/26/16 Reported Fleet Enema (Sodium Phosphate/Biphosphate) Catherine 1 Ea [place] UD PRN 07/26/16 Reported GIVE 1 APPLICATION EVERY 72 HOURS PRN Dulcolax (Bisacodyl) 10 Mg Sup 1 Supp [place] Q48HR PRN 07/26/16 Reported Singulair (Montelukast Sodium) 10 Mg Tab 10 Mg PO DAILY 02/10/16 Reported Co Q10 (Coenzyme Q10 (Ubidecarenone)) 200 Mg Cap 200 Mg PO QAM 04/01/15 Reported Levothyroxine Sodium 150 Mcg Tab 1 Tab PO QAM 04/01/15 Reported Zoloft (Sertraline HCl) 100 Mg Tab 2 Tabs PO HS 04/01/15 Reported Tylenol (Acetaminophen) 325 Mg Tab 650 Mg PO Q4 PRN 10/22/13 Reported MAX APAP = 3GM/24HRS Senexon (Sennosides) 8.6 Mg Tab 1 Tab PO BID 10/22/13 Reported Coreg (Carvedilol) 12.5 Mg Tab 12.5 Mg PO BID 02/28/13 Reported Provider Instructions Activity Restrictions - No exercising or heavy lifting for 24 hours. - Do not drink alcohol the day of the procedure. - Do not drive a car or operate machinery until the day after the procedure. - Do not make any important decisions or sign important papers in 24 hours after the procedure. Following Day: - Return to full activity which may include returning to work/school. Diet Start your diet with liquids and light foods (jello, soup, juice, toast). Then eat your usual diet if not nauseated. Treatment For Common After Affects For mild abdominal pain, bloating, or excessive gas: - Rest - Eat lightly - Lie on right side Follow-Up Information Follow-up with Dr.Rodney Hi as scheduled Anesthesia Information What You Should Know You have had a procedure that required some medicine to reduce anxiety and discomfort. This treatment is called moderate sedation. After receiving the treatment, you may be sleepy, but you will be able to breathe on your own. The effects of the treatment may last for several hours. Follow these instructions along with Activity/Diet recommendations noted above: * Do NOT do anything where dizziness or clumsiness would be dangerous. * Rest quietly at home today, then you can be up and about tomorrow. * Have a responsible person stay with you the rest of today. * You may have had an I.V. today. If so, you may take the dressing off later today. Recommendations Call your doctor if: * Trouble breathing * Continuous vomiting for more than 24 hours * Temperature above 101 degrees * Severe abdominal pain or bloating * Pain not relieved by pain medicine ordered * There is increased drainage or redness from any incision * A large amount of rectal bleeding greater than 2-3 tablespoons. (If you had a polyp/s removed or have hemorrhoids, a small amount of blood - from the rectum is to be expected.) * You have any unanswered questions or concerns. IN THE EVENT OF A SERIOUS EMERGENCY, GO TO THE NEAREST EMERGENCY ROOM Your discharge instructions were prepared by provider Dm Sneed. Patient Instructions Signature Page Christina Dao Patient (or Guardian) Signature/Date: I have read and understand the instructions given to me by my caregivers. Caregiver/RN/Doctor Signature/Date: The above-named patient and/or guardian has received patient instructions on this date. + Original Patient Signature Page (only) stays with chart. Please make copy for patient.
--- NOTE | 2017-04-04 15:13 | GI REPORT ---
Procedure Date: 04/04/2017 2:21 PM Procedure: Upper GI endoscopy Indications: Esophageal dysphagia Medicines: Propofol per Anesthesia Complications: No immediate complications. Estimated blood loss: Minimal. Estimated Blood Loss: Estimated blood loss was minimal. Procedure: Pre-Anesthesia Assessment: - Prior to the procedure, a History and Physical was performed, and patient medications and allergies were reviewed. The patient's tolerance of previous anesthesia was also reviewed. The risks and benefits of the procedure and the sedation options and risks were discussed with the patient. All questions were answered, and informed consent was obtained. Prior Anticoagulants: The patient has taken no previous anticoagulant or antiplatelet agents. ASA Grade Assessment: III - A patient with severe systemic disease. After reviewing the risks and benefits, the patient was deemed in satisfactory condition to undergo the procedure. After obtaining informed consent, the endoscope was passed under direct vision. Throughout the procedure, the patient's blood pressure, pulse, and oxygen saturations were monitored continuously. The scope was introduced through the mouth, and advanced to the second part of duodenum. The upper GI endoscopy was accomplished without difficulty. The patient tolerated the procedure well. Findings: The examined esophagus was normal. A small hiatal hernia was found. The proximal extent of the gastric folds (end of tubular esophagus) was 45 cm from the incisors. The hiatal narrowing was 46 cm from the incisors. The Z-line was 45 cm from the incisors. Abnormal motility was noted at the lower esophageal sphincter. The cricopharyngeus was normal. The distal esophagus/lower esophageal sphincter is patulous. The entire examined stomach was normal. The examined duodenum was normal. The cardia and gastric fundus were normal on retroflexion. The examined esophagus was normal. A guidewire was placed and the scope was withdrawn. Dilation was performed with a Savary dilator with no resistance at 60 Fr. Mild mucosal disuption after dilation at proximal esophagus at ~ 18 cm. Retained gastric contents are not identified on this exam. Impression: - Normal esophagus. - Small hiatal hernia. - Abnormal esophageal motility. - Normal stomach. - Normal examined duodenum. - Normal esophagus. Dilated. - No specimens collected. Recommendation: - Discharge patient to home (ambulatory). - Advance diet as tolerated. - Continue present medications. - Return to GI clinic as previously scheduled. - If symptoms persist, consider BA swallow to assess for Zenker's diverticulum MD Dm Steiner MD 04/04/2017 3:12:21 PM This report has been signed electronically. Note Initiated On: 04/04/2017 2:21 PM I attest to the content of the Intraoperative Record and orders documented therein, exceptions below
--- NOTE | 2017-04-04 15:19 | Anesthesiology Progress Note ---
Anesthesia Post Op Note Date & Time Apr 04, 2017 at 15:19 Vital Signs Pain Intensity: 0 Vital Signs Past 12 Hours Date Time Temp Pulse Resp B/P (MAP) Pulse Ox O2 Delivery O2 Flow Rate FiO2 04/04/17 15:07 65 20 113/71 (85) 100 Room Air 04/04/17 14:52 64 12 105/61 (76) 96 Room Air 04/04/17 14:17 36.7 65 20 179/92 (121) 96 Room Air Notes Mental Status: alert / awake / arousable, participated in evaluation Pt Amnestic to Procedure: Yes Nausea / Vomiting: adequately controlled Pain: adequately controlled Airway Patency, RR, SpO2: stable & adequate BP & HR: stable & adequate Hydration State: stable & adequate Anesthetic Complications: no major complications apparent
[2017-04-04 15:23] VITALS: BP 151/88; PULSE 65; O2SAT 100
== END | disposition home or self-care (01) ==
LOC: C.GI 12:29
PROVIDERS: ATTEND Internal Medicine Gastroenterology
DX: R13.10 Dysphagia, unspecified (principal); K44.9 Diaphragmatic hernia without obstruction or gangrene; M19.90 Unspecified osteoarthritis, unspecified site; J44.9 Chronic obstructive pulmonary disease, unspecified; I25.10 Atherosclerotic heart disease of native coronary artery without angina pectoris; E03.9 Hypothyroidism, unspecified; K21.9 Gastro-esophageal reflux disease without esophagitis; I10 Essential (primary) hypertension; H40.9 Unspecified glaucoma; F32.9 Major depressive disorder, single episode, unspecified; I25.2 Old myocardial infarction; Z95.0 Presence of cardiac pacemaker; Z90.49 Acquired absence of other specified parts of digestive tract; Z96.643 Presence of artificial hip joint, bilateral; Z96.653 Presence of artificial knee joint, bilateral; Z98.1 Arthrodesis status; Z87.891 Personal history of nicotine dependence; Z79.82 Long term (current) use of aspirin; Z88.5 Allergy status to narcotic agent

== ENCOUNTER → 2017-04-12 | Outpatient (CLI) | payer OTHER, MEDICARE ==
[~2017-04-12] MED LIST changes: -LIDOCAINE HCL 2% 2 ML VIAL (20MG/ML) ONE; -PROPOFOL IV EMULSION 10 MG/ML 20 ML VIAL IV ONE; -SODIUM CHLORIDE 0.9% 500ML 500 ML IV ONE
--- NOTE | 2017-04-12 10:28 | DIAGNOSTIC IMAGING REPORT ---
CHEST 2 VIEWS ROUTINE CLINICAL HISTORY: J18.9 [id number] COMPARISON STUDY: 02/14/2017 FINDINGS: The heart is enlarged. There is a left subclavian dual-chamber central venous pacemaker present. There is no failure. There are linear opacities the left lung base. While likely atelectatic, and infectious/inflammatory process could appear similar[ IMPRESSION: 1. Stable cardiomegaly. No evidence of failure 2. Left basilar opacities, atelectatic versus inflammatory Electronically signed by: Ha Regalado M.D. 04/12/2017 10:27 AM Dictated Date/Time: 04/12/2017 10:25 AM
== END | disposition home or self-care (01) ==
LOC: C.RAD1850 10:09
PROVIDERS: ATTEND Physician Assistant
DX: J18.9 Pneumonia, unspecified organism (principal); I51.7 Cardiomegaly; R91.8 Other nonspecific abnormal finding of lung field

== ENCOUNTER → 2017-04-20 | Outpatient (CLI) | payer OTHER, MEDICARE | END | disposition home or self-care (01) | LOC: C.LABFOXAE 10:04 | PROVIDERS: ATTEND Internal Medicine | DX: R05 Cough (principal) ==

== ENCOUNTER → 2017-05-03 | Outpatient (CLI) | payer OTHER, MEDICARE ==
[2017-05-03 09:16] LABS: BLOOD UREA NITROGEN 22 mg/dl (7-18); CALCIUM 8.2 mg/dl (8.5-10.1); CARBON DIOXIDE 39 mmol/L (21-32); CREATININE 1.66 mg/dl (0.60-1.20); GLUCOSE 95 mg/dl (70-99); POTASSIUM 3.5 mmol/L (3.5-5.1); SODIUM 146 mmol/L (136-145)
== END ==
LOC: C.LABFOXAE 08:49
PROVIDERS: ATTEND Internal Medicine
DX: I50.32 Chronic diastolic (congestive) heart failure (principal)

== ENCOUNTER → 2017-05-10 | Outpatient (CLI) | payer OTHER, MEDICARE ==
[2017-05-10 09:09] LABS: BLOOD UREA NITROGEN 32 mg/dl (7-18); CALCIUM 8.6 mg/dl (8.5-10.1); CARBON DIOXIDE 37 mmol/L (21-32); CREATININE 2.14 mg/dl (0.60-1.20); GLUCOSE 102 mg/dl (70-99); SODIUM 145 mmol/L (136-145); URIC ACID 7.9 mg/dl (2.6-7.2)
== END ==
LOC: C.LABFOXAE 08:46
PROVIDERS: ATTEND Internal Medicine Hospice and Palliative Medicine
DX: I50.22 Chronic systolic (congestive) heart failure (principal)